=== PATIENT | female | born 1980 | race Caucasian/White ===

== ENCOUNTER 2019-01-22 14:25 | Inpatient (IN) | payer OTHER ==
--- NOTE | 2019-01-22 14:59 | ER Document Report ---
ED Medical Screen (RME) - General Chief Complaint: Back Pain Stated Complaint: STOMACH PAIN Time Seen by Provider: 01/22/19 14:41 Notes: Patient is a 38-year-old female who presents to the emergency department with a chief complaint of abdominal pain and back pain. Patient states that her symptoms started 2 days ago. She was seen by urgent care this morning and was referred to the emergency department. Patient admits to some vomiting. Her pain started in her mid upper abdomen. She states that she had a fullness and she thought that she may be had gas. Patient vomited a few times. Denies any diarrhea. Her back pain started yesterday and describes her pain as a dull ache. Patient states that she is currently on control that is usually about 3 months long and her last menstrual cycle was about 3 months ago. Exam: Soft nontender abdomen. I have greeted and performed a rapid initial assessment of this patient. A comprehensive ED assessment and evaluation of the patient, analysis of test results and completion of medical decision making process will be conducted by an additional ED providers. - Related Data Allergies/Adverse Reactions: No Known Allergies Allergy (Verified 01/22/19 14:41) Past Medical History - Social History Frequency of alcohol use: None Drug Abuse: None Physical Exam - Vital signs Vitals: Temp Pulse Resp BP Pulse Ox 98.5 F 98 16 135/71 H 96 01/22/19 14:29 01/22/19 14:29 01/22/19 14:29 01/22/19 14:29 01/22/19 14:29 Course - Vital Signs Vital signs: Temp Pulse Resp BP Pulse Ox 98.5 F 98 16 135/71 H 96 01/22/19 14:29 01/22/19 14:29 01/22/19 14:29 01/22/19 14:29 01/22/19 14:29
[2019-01-22] MEDS ORDERED: NAPROXEN 250 MG TABLET PO ONE (15:21)
--- NOTE | 2019-01-22 15:25 | ER Document Report ---
ED General - General Chief Complaint: Back Pain Stated Complaint: STOMACH PAIN Time Seen by Provider: 01/22/19 14:41 Primary Care Provider: TAYLER SHARP MD [Primary Care Provider] - Follow up as needed - [facility] Notes: Patient is a 38-year-old female that presents to the emergency department for chief complaint of abdominal pain and back pain. Patient states 3 days ago she had epigastric abdominal pain nausea and vomiting. She states her pain has progressively improved and is now resolved. She also states the nausea is resolved. She has not vomited since yesterday. Patient states that yesterday she began having bilateral thoracic and low back pain. Her pain is worse when she sits still and better when she is up moving. She denies injury or trauma. She denies any dysuria or urinary frequency. Patient not having any fever, chills, chest pain or difficulty breathing. She states she took Gas-X yesterday without improvement of symptoms. She denies history of chronic back pain in the past. Past Medical History: Negative Past Surgical History: Reviewed in chart Social History: Denies drugs alcohol and tobacco Family History: Reviewed and noncontributory for presenting illness Allergies: Reviewed, see documented allergy list. REVIEW OF SYSTEMS: CONSTITUTIONAL : No fever No chills No diaphoresis No recent illness EENT: No vision changes No congestion No sore throat CARDIOVASCULAR: No chest pain No palpitations RESPIRATORY: No shortness of breath No cough No difficulty breathing GASTROINTESTINAL: abdominal pain nausea vomiting No diarrhea GENITOURINARY: No dysuria No hematuria No difficulty urinating MUSCULOSKELETAL: back pain No leg pain No arm pain SKIN: No rashes No lesions LYMPHATIC: No swollen, enlarged glands. NEUROLOGICAL: No lightheadedness No headache No weakness No paresthesias PSYCHIATRIC: No anxiety No depression PHYSICAL EXAMINATION: Vital signs reviewed, nursing noted reviewed. GENERAL: Well-appearing, well-nourished and in no acute distress. HEAD: Atraumatic, normocephalic. EYES: Eyes appear normal, extraocular movements intact, sclera anicteric, conjunctiva are normal. ENT: nares patent, oropharynx clear without exudates. Moist mucous membranes. NECK: Normal range of motion, supple without lymphadenopathy LUNGS: Breath sounds clear to auscultation bilaterally and equal. No wheezes rales or rhonchi. HEART: Regular rate and rhythm without murmurs ABDOMEN: Soft, nontender, normoactive bowel sounds. No rebound, guarding, or rigidity. No masses appreciated. Back: Bilateral lower thoracic and diffuse lumbar muscle paraspinal tenderness. No midline spinal tenderness. Normal range of motion. EXTREMITIES: Nontender, good range of motion, no pitting or edema. NEUROLOGICAL: No focal neurological deficits. Moves all extremities spontaneously Motor and sensory grossly intact on exam. PSYCH: Normal mood, normal affect. SKIN: Warm, Dry, normal turgor, no rashes or lesions noted on exposed skin - Related Data Allergies/Adverse Reactions: No Known Allergies Allergy (Verified 01/22/19 14:41) Past Medical History - Social History Smoking Status: Unknown if Ever Smoked Frequency of alcohol use: None Drug Abuse: None Family History: Reviewed & Not Pertinent Patient has suicidal ideation: No Patient has homicidal ideation: No Past Surgical History: Reports: Hx Section - x4 Physical Exam - Vital signs Vitals: Temp Pulse Resp BP Pulse Ox 98.5 F 98 16 135/71 H 96 01/22/19 14:29 01/22/19 14:29 01/22/19 14:29 01/22/19 14:29 01/22/19 14:29 Course - Re-evaluation Re-evalutation: 01/22/19 15:23 Vitals reviewed. Nursing notes reviewed. Patient is well-appearing and in no acute distress. She has tenderness to palpation of her bilateral paraspinal muscles in her low back and lower thoracic region. Patient has had multiple episodes of emesis over the last few days and may have muscle strain from vomiting. She has no midline spinal tenderness to suggest spinal fracture necessitating imaging. Patient also has no symptoms of cauda equina, epidural abscess or transverse myelitis. She was given naproxen for her back pain. Patient's epigastric abdominal pain has resolved and she reports no longer feeling nauseated. Lab work was obtained in triage and will be followed. 01/22/19 16:45 Patient's lab work shows elevated bilirubin and lipase consistent with gallstone pancreatitis. Her ultrasound shows ductal dilation as well as cholelithiasis. Patient has no signs of acute cholecystitis. After she returned back from [facility] she states her abdominal pain is worse from the probe pushing in her right upper quadrant. She does now have a positive Salcido sign. Patient will be given IV fluids, Zofran and morphine for further symptom medic management. I did discuss her care with general surgery who will see her on consultation. Her care was also discussed with Dr. Lopes who feel she needs ERCP which is a service he cannot provide. 01/22/19 17:50 Patient was evaluated in the emergency room by Dr. Conde who agrees to admit her for further management. He was able to discuss her care with Dr. Ruiz who will perform ERCP. Patient in agreement with plan of care Laboratory 01/22/19 01/22/19 01/22/19 15:01 15:01 15:01 WBC 8.4 RBC 5.12 Hgb 15.3 Hct 45.7 MCV 89 MCH 29.9 MCHC 33.5 RDW 13.2 Plt Count 297 Lymph % (Auto) 23.3 [place] % (Auto) 7.2 Eos % (Auto) 1.6 Baso % (Auto) 0.6 Absolute Neuts (auto) 5.6 Absolute Lymphs (auto) 1.9 Absolute Monos (auto) 0.6 Absolute Eos (auto) 0.1 Absolute Basos (auto) 0.0 Seg Neutrophils % 67.3 Sodium 138.2 Potassium 4.0 Chloride 103 Carbon Dioxide 24 Anion Gap 11 BUN 6 L Creatinine 0.83 Est GFR ( Amer) > 60 Est GFR (MDRD) Non-Af > 60 Glucose 99 Calcium 10.2 Total Bilirubin 6.1 H Direct Bilirubin 4.1 H Neonat Total Bilirubin Not Reportable Neonat Direct Bilirubin Not Reportable Neonat Indirect Bili Not Reportable AST 415 H ALT 521 Alkaline Phosphatase 135 H Total Protein 8.6 H Albumin 4.7 Lipase 72065.9 H Serum HCG, Qual NEGATIVE Urine Color Urine Appearance Urine pH Ur Specific [place] Urine Protein Urine Glucose (UA) Urine Ketones Urine Blood Urine Nitrite Urine Bilirubin Urine Urobilinogen Ur Leukocyte Esterase Urine WBC (Auto) Urine RBC (Auto) Urine Bacteria (Auto) Squamous Epi Cells Auto Urine Mucus (Auto) Urine Ascorbic Acid 01/22/19 15:01 WBC RBC Hgb Hct MCV MCH MCHC RDW Plt Count Lymph % (Auto) [place] % (Auto) Eos % (Auto) Baso % (Auto) Absolute Neuts (auto) Absolute Lymphs (auto) Absolute Monos (auto) Absolute Eos (auto) Absolute Basos (auto) Seg Neutrophils % Sodium Potassium Chloride Carbon Dioxide Anion Gap BUN Creatinine Est GFR ( Amer) Est GFR (MDRD) Non-Af Glucose Calcium Total Bilirubin Direct Bilirubin Neonat Total Bilirubin Neonat Direct Bilirubin Neonat Indirect Bili AST ALT Alkaline Phosphatase Total Protein Albumin Lipase Serum HCG, Qual Urine Color YELLOW Urine Appearance CLEAR Urine pH 5.0 Ur Specific [place] 1.010 Urine Protein NEGATIVE Urine Glucose (UA) NEGATIVE Urine Ketones 20 H Urine Blood MODERATE H Urine Nitrite NEGATIVE Urine Bilirubin SMALL H Urine Urobilinogen 4.0 H Ur Leukocyte Esterase NEGATIVE Urine WBC (Auto) 4 Urine RBC (Auto) 3 Urine Bacteria (Auto) 3+ Squamous Epi Cells Auto 1 Urine Mucus (Auto) RARE Urine Ascorbic Acid NEGATIVE Abdomen Ultrasound 01/22/19 15:38 IMPRESSION: Cholelithiasis. No acute inflammatory changes identified. Mild fatty liver. - Vital Signs Vital signs: Temp Pulse Resp BP Pulse Ox 97.9 F 89 16 133/82 H 98 01/22/19 16:53 01/22/19 16:53 01/22/19 16:53 01/22/19 16:53 01/22/19 16:53 - Laboratory Result Diagrams: 01/22/19 15:01 01/22/19 15:01 Laboratory results interpreted by me: 01/22/19 01/22/19 15:01 15:01 BUN 6 L Total Bilirubin 6.1 H Direct Bilirubin 4.1 H AST 415 H Alkaline Phosphatase 135 H Total Protein 8.6 H Lipase 84547.9 H Urine Ketones 20 H Urine Blood MODERATE H Urine Bilirubin SMALL H Urine Urobilinogen 4.0 H Discharge - Discharge Clinical Impression: Gallstone pancreatitis, Total bilirubin, elevated, Elevated LFTs Back pain Qualifiers: Back pain location: low back pain Chronicity: acute Back pain laterality: bi lateral Sciatica presence: without sciatica Qualified Code(s): M54.5 - Low back pain Nausea and vomiting Qualifiers: Vomiting type: unspecified Vomiting Intractability: non-intractable Qualified Code(s): R11.2 - Nausea with vomiting, unspecified Condition: Stable Disposition: ADMITTED INPATIENT Admitting Provider: Surgicalist Unit Admitted: Surgical Floor Referrals: TAYLER SHARP MD [Primary Care Provider] - Follow up as needed
[2019-01-22 15:27] LABS: ABSOLUTE EOSINOPHILS # (AUTO) 0.1 10^3/uL (0.0-0.6); ABSOLUTE LYMPHOCYTES (AUTO) 1.9 10^3/uL (0.5-4.7); ABSOLUTE MONOCYTES (AUTO) 0.6 10^3/uL (0.1-1.4); ABSOLUTE NEUT (AUTO) 5.6 10^3/uL (1.7-8.2); APPEARANCE,URINE CLEAR; BASOPHILS % (AUTO) 0.6 % (0-2); BILIRUBIN,URINE SMALL (NEGATIVE); EOSINOPHILS % (AUTO) 1.6 % (0-6); GLUCOSE, URINE NEGATIVE (NEGATIVE); HEMATOCRIT 45.7 % (36.0-47.0); HEMOGLOBIN 15.3 g/dL (12.0-15.5); KETONES,URINE 20 mg/dL (NEGATIVE); LEUKOCYTE ESTERASE,URINE NEGATIVE (NEGATIVE); LYMPHOCYTES % (AUTO) 23.3 % (13-45); MEAN CORPUSCULAR HEMOGLOBIN 29.9 pg (27.0-33.4); MEAN CORPUSCULAR HGB CONC 33.5 g/dL (32.0-36.0); MEAN CORPUSCULAR VOLUME 89 fl (80-97); MONOCYTES % (AUTO) 7.2 % (3-13); NITRITE,URINE NEGATIVE (NEGATIVE); PLATELET COUNT 297 10^3/uL (150-450); PROTEIN,URINE NEGATIVE (NEGATIVE); RED BLOOD COUNT 5.12 10^6/uL (3.72-5.28); RED CELL DISTRIBUTION WIDTH 13.2 % (11.5-14.0); SEGMENTED NEUTROPHILS % (AUTO) 67.3 % (42-78); TOTAL CELLS COUNTED % (AUTO) 100 %; WHITE BLOOD COUNT 8.4 10^3/uL (4.0-10.5)
[2019-01-22 15:28] LABS: COLOR,URINE YELLOW
[2019-01-22 15:33] LABS: ALBUMIN 4.7 g/dL (3.5-5.0); ALKALINE PHOSPHATASE 135 U/L (38-126); ANION GAP 11 (5-19); ASPARTATE AMINO TRANSFERASE 415 U/L (14-36); BILIRUBIN,DIRECT 4.1 mg/dL (0.0-0.4); BILIRUBIN,TOTAL 6.1 mg/dL (0.2-1.3); BLOOD UREA NITROGEN 6 mg/dL (7-20); CALCIUM 10.2 mg/dL (8.4-10.2); CARBON DIOXIDE 24 mmol/L (22-30); CHLORIDE 103 mmol/L (98-107); GLUCOSE 99 mg/dL (75-110); TOTAL PROTEIN 8.6 g/dL (6.3-8.2)
[2019-01-22] MEDS ORDERED: ONDANSETRON HCL INJ/PF 4 MG/2 ML SDV IV ONE (16:45)
[2019-01-22] MEDS ORDERED: NORMAL SALINE 1000 ML 1,000 ML IV ONE (16:45)
[2019-01-22] MEDS ORDERED: MORPHINE SULFATE 10 MG/ML INJ IV ONE ×2 (16:45→17:42)
--- NOTE | 2019-01-22 17:03 | RADIOLOGY REPORT (SQ) ---
EXAM DESCRIPTION: U/S ABDOMEN LIMITED W/O DOP COMPLETED DATE/TIME: 01/22/2019 4:51 pm REASON FOR STUDY: elevated bilirubin, abdominal pain COMPARISON: None. TECHNIQUE: Dynamic and static grayscale images acquired of the abdomen and recorded on PACS. Additio nal selected color Doppler and spectral images recorded. LIMITATIONS: Bowel gas. FINDINGS: PANCREAS: Partially obscured due to bowel gas. LIVER: No masses. Echotexture mildly increased consistent with fatty infiltration. LIVER VASCULATURE: Normal directional flow of the main portal vein and hepatic veins. GALLBLADDER: Multiple tiny stones. Normal wall thickness. No pericholecystic fluid. ULTRASOUND-DETECTED PRESCOTT'S SIGN: Negative. INTRAHEPATIC DUCTS AND COMMON DUCT: CBD and intrahepatic ducts normal caliber. No filling defects. INFERIOR VENA CAVA: Normal flow. AORTA: No aneurysm identified. RIGHT KIDNEY: Normal size. Normal echogenicity. No solid or suspicious masses. No hydronephros is. No calcifications. PERITONEAL AND RIGHT PLEURAL SPACE: No ascites or effusions. OTHER: No other significant findings. IMPRESSION: Cholelithiasis. No acute inflammatory changes identified. Mild fatty liver. TECHNICAL DOCUMENTATION: JOB ID: [id number] 2010 [employer]- All Rights Reserved Reading location - IP/workstation name: [email or web address]
[2019-01-22] MEDS ORDERED: HYDROMORPHONE HCL INJ/PF 2 MG/ML AMPULE ONE (19:18)
[2019-01-22] MEDS ORDERED: ONDANSETRON HCL INJ/PF 4 MG/2 ML SDV ONE (19:18)
[2019-01-22] MEDS: NORMAL SALINE 1000 ML 1,000 ML IV PRN (19:29)
[2019-01-22] MEDS ORDERED: DEXTROSE 50%-WATER 25 GM/50 ML DISP.SYRIN IV PRN ×3 (19:55→20:03)
[2019-01-22] MEDS ORDERED: DEXTROSE 40% GEL 15 GM TUBE PO PRN ×3 (19:55→20:03)
[2019-01-22] MEDS ORDERED: GLUCAGON,HUMAN RECOMB 1 MG INJ SUBCUT PRN (19:55)
--- NOTE | 2019-01-22 20:03 | PDOC H&P ---
History of Present Illness Admission Date/PCP: 01/22/19 18:03 TAYLER SHARP MD Patient complains of: Nausea and vomiting with abdominal pains History of Present Illness: PEÑA SILVA is a 38 year old female who complained of nausea and vomiting with epigastric pains after eating a fatty meal about 2 days ago. Came to ED today because of persistent nausea and epigastric pains radiating to the back. She denies any chills or fever diarrhea nor constipation. Her bilirubin, liver enzymes and lipase are elevated are elevated. She had an ultrasound of the gallbladder which showed gallstones with no cholecystitis and slightly dilated common bile duct. Past Medical History Medical History: None Past Surgical History Past Surgical History: Reports: Section - x4 Social History Smoking Status: Never Smoker Electronic Cigarette use?: No Frequency of Alcohol Use: Rare Hx Recreational Drug Use: Yes Drugs: None Hx Prescription Drug Abuse: No Family History Family History: Reviewed & Not Pertinent Parental Family History Reviewed: Yes - Father at age 64 due to lung cancer and mother is alive with autoimmun Children Family History Reviewed: No Sibling(s) Family History Reviewed.: No Medication/Allergy Allergies/Adverse Reactions: No Known Allergies Allergy (Verified 01/22/19 14:41) Review of Systems Constitutional: PRESENT: as per HPI Cardiovascular: PRESENT: other - No chest pains nor cough Gastrointestinal: PRESENT: abdominal pain, nausea, vomiting Physical Exam Vital Signs: Temp Pulse Resp BP Pulse Ox 97.9 F 89 16 133/82 H 98 01/22/19 16:53 01/22/19 16:53 01/22/19 16:53 01/22/19 16:53 01/22/19 16:53 Intake & Output 01/21/19 01/22/19 01/23/19 06:59 06:59 06:59 Intake Total 1000 Balance 1000 Weight 99.1 kg General appearance: PRESENT: mild distress, obese Head exam: PRESENT: atraumatic Mouth exam: PRESENT: dry mucosa Neck exam: PRESENT: full ROM Respiratory exam: PRESENT: clear to auscultation zan Cardiovascular exam: PRESENT: RRR Pulses: PRESENT: normal radial pulses Vascular exam: PRESENT: normal capillary refill GI/Abdominal exam: PRESENT: soft, tenderness - Epigastric area Rectal exam: PRESENT: deferred Extremities exam: PRESENT: full ROM Musculoskeletal exam: PRESENT: ambulatory Psychiatric exam: PRESENT: appropriate affect Skin exam: PRESENT: normal color, warm Results Laboratory Results: 01/22/19 15:01 01/22/19 15:01 01/22/19 01/22/19 01/22/19 15:01 15:01 15:01 WBC 8.4 RBC 5.12 Hgb 15.3 Hct 45.7 MCV 89 MCH 29.9 MCHC 33.5 RDW 13.2 Plt Count 297 Seg Neutrophils % 67.3 Sodium 138.2 Potassium 4.0 Chloride 103 Carbon Dioxide 24 Anion Gap 11 BUN 6 L Creatinine 0.83 Est GFR ( Amer) > 60 Glucose 99 Calcium 10.2 Total Bilirubin 6.1 H AST 415 H Alkaline Phosphatase 135 H Total Protein 8.6 H Albumin 4.7 Lipase 08980.9 H Serum HCG, Qual NEGATIVE Urine Color Urine Appearance Urine pH Ur Specific [place] Urine Protein Urine Glucose (UA) Urine Ketones Urine Blood Urine Nitrite Ur Leukocyte Esterase Urine WBC (Auto) Urine RBC (Auto) 01/22/19 15:01 WBC RBC Hgb Hct MCV MCH MCHC RDW Plt Count Seg Neutrophils % Sodium Potassium Chloride Carbon Dioxide Anion Gap BUN Creatinine Est GFR ( Amer) Glucose Calcium Total Bilirubin AST Alkaline Phosphatase Total Protein Albumin Lipase Serum HCG, Qual Urine Color YELLOW Urine Appearance CLEAR Urine pH 5.0 Ur Specific [place] 1.010 Urine Protein NEGATIVE Urine Glucose (UA) NEGATIVE Urine Ketones 20 H Urine Blood MODERATE H Urine Nitrite NEGATIVE Ur Leukocyte Esterase NEGATIVE Urine WBC (Auto) 4 Urine RBC (Auto) 3 Impressions: Abdomen Ultrasound 01/22/19 15:38 IMPRESSION: Cholelithiasis. No acute inflammatory changes identified. Mild fatty liver. Assessment & Plan - Diagnosis (1) Back pain Qualifiers: Back pain location: low back pain Chronicity: acute Back pain laterality: bilateral Sciatica presence: without sciatica Qualified Code(s): M54.5 - Low back pain Is this a current diagnosis for this admission?: Yes (2) Elevated LFTs Is this a current diagnosis for this admission?: Yes (3) Gallstone pancreatitis Is this a current diagnosis for this admission?: Yes (4) Nausea and vomiting Qualifiers: Vomiting type: unspecified Vomiting Intractability: non-intractable Qualified Code(s): R11.2 - Nausea with vomiting, unspecified Is this a current diagnosis for this admission?: Yes (5) Total bilirubin, elevated Is this a current diagnosis for this admission?: Yes - Time Time Spent: 30 to 50 Minutes - Inpatient Certification Medical Necessity: Need For IV Fluids, Need for Pain Control, Need for IV An tibiotics, Need for Surgery - Plan Summary Plan Summary: Discussed with respiratory medicine physician Dr. Ruiz, he is willing to do the ERCP in 48hours hopefully when her enzymes are trending down. Meantime will keep the patient well-hydrated, will anti- Nausea medications, pain medication and IV antibiotics We will also need cholecystectomy after ERCP
[2019-01-22] MEDS: ENOXAPARIN SODIUM INJ 40 MG/0.4 ML DISP.SYRIN SUBCUT SCH (21:35)
[2019-01-22] MEDS: HYDROMORPHONE HCL INJ/PF 2 MG/ML AMPULE IV PRN (22:34)
[2019-01-23] MEDS: HYDROMORPHONE HCL INJ/PF 2 MG/ML AMPULE IV PRN ×8 (01:33→22:36)
[2019-01-23] MEDS: ONDANSETRON HCL INJ/PF 4 MG/2 ML SDV IV PRN ×3 (01:34→13:51)
[2019-01-23] MEDS: DEXTROSE 5%-LACTATED RINGERS 1,000 ML IV PRN ×4 (01:37→20:26)
[2019-01-23] MEDS ORDERED: HYDROMORPHONE HCL INJ/PF 2 MG/ML AMPULE IV PRN (02:17)
[2019-01-23] MEDS ORDERED: HYDROMORPHONE HCL INJ/PF 2 MG/ML AMPULE IV ONE (02:30)
[2019-01-23 07:45] LABS: ABSOLUTE MONOCYTES (AUTO) 0.5 10^3/uL (0.1-1.4); ABSOLUTE NEUT (AUTO) 7.2 10^3/uL (1.7-8.2); BASOPHILS % (AUTO) 0.2 % (0-2); EOSINOPHILS % (AUTO) 0.5 % (0-6); HEMATOCRIT 40.9 % (36.0-47.0); LYMPHOCYTES % (AUTO) 11.2 % (13-45); MEAN CORPUSCULAR HEMOGLOBIN 30.4 pg (27.0-33.4); MEAN CORPUSCULAR HGB CONC 34.3 g/dL (32.0-36.0); MEAN CORPUSCULAR VOLUME 89 fl (80-97); MONOCYTES % (AUTO) 6.2 % (3-13); PLATELET COUNT 224 10^3/uL (150-450); RED BLOOD COUNT 4.61 10^6/uL (3.72-5.28); RED CELL DISTRIBUTION WIDTH 13.3 % (11.5-14.0); SEGMENTED NEUTROPHILS % (AUTO) 81.9 % (42-78); TOTAL CELLS COUNTED % (AUTO) 100 %; WHITE BLOOD COUNT 8.8 10^3/uL (4.0-10.5)
[2019-01-23 08:00] LABS: ALBUMIN 3.4 g/dL (3.5-5.0); ALKALINE PHOSPHATASE 96 U/L (38-126); ANION GAP 8 (5-19); ASPARTATE AMINO TRANSFERASE 281 U/L (14-36); BILIRUBIN,DIRECT 3.6 mg/dL (0.0-0.4); BILIRUBIN,TOTAL 5.2 mg/dL (0.2-1.3); BLOOD UREA NITROGEN 4 mg/dL (7-20); CARBON DIOXIDE 24 mmol/L (22-30); CHLORIDE 105 mmol/L (98-107); GLUCOSE 137 mg/dL (75-110); POTASSIUM 3.9 mmol/L (3.6-5.0); TOTAL PROTEIN 6.5 g/dL (6.3-8.2)
[2019-01-23] MEDS ORDERED: INFLUENZA QUAD (6MOS+) 2019-20 VAC 0.5 ML SYR IM ONE (08:00)
[2019-01-23] MEDS: CEFAZOLIN SODIUM 2 GM in DEXTROSE 5%-WATER 100 ML IV SCH ×2 (10:39→18:03)
[2019-01-23] MEDS: PROMETHAZINE HCL INJ 25 MG/1 ML VIAL IV PRN (10:39)
[2019-01-23] MEDS: ENOXAPARIN SODIUM INJ 40 MG/0.4 ML DISP.SYRIN SUBCUT SCH (10:51)
--- NOTE | 2019-01-23 19:45 | PDOC PROGRESS REPORT ---
Subjective Progress Note for:: 01/23/19 Subjective:: abdominal pains with nausea Reason For Visit: GALLSTONE PANCREATITIS CHOLELITHIASIS Physical Exam Vital Signs: Temp Pulse Resp BP Pulse Ox 98.1 F 99 17 118/73 96 01/23/19 16:00 01/23/19 16:00 01/23/19 16:00 01/23/19 16:00 01/23/19 16:00 Intake & Output 01/22/19 01/23/19 01/24/19 06:59 06:59 06:59 Intake Total 2100 2100 Balance 2100 2100 Weight 99.5 kg Exam: The abdomen is soft with mild tenderness at the epigastric area. She remains afebrile. Results Laboratory Results: 01/23/19 06:37 01/23/19 06:37 01/23/19 01/23/19 06:37 06:37 WBC 8.8 RBC 4.61 Hgb 14.0 Hct 40.9 MCV 89 MCH 30.4 MCHC 34.3 RDW 13.3 Plt Count 224 Seg Neutrophils % 81.9 H Sodium 136.7 L Potassium 3.9 Chloride 105 Carbon Dioxide 24 Anion Gap 8 BUN 4 L Creatinine 0.54 Est GFR ( Amer) > 60 Glucose 137 H Calcium 9.0 Total Bilirubin 5.2 H AST 281 H Alkaline Phosphatase 96 Total Protein 6.5 Albumin 3.4 L Lipase 88718.0 H Impressions: Abdomen Ultrasound 01/22/19 15:38 IMPRESSION: Cholelithiasis. No acute inflammatory changes identified. Mild fatty liver. Assessment & Plan - Diagnosis (1) Back pain Qualifiers: Back pain location: low back pain Chronicity: acute Back pain laterality: bilateral Sciatica presence: without sciatica Qualified Code(s): M54.5 - Low back pain Is this a current diagnosis for this admission?: Yes (2) Elevated LFTs Is this a current diagnosis for this admission?: Yes (3) Gallstone pancreatitis Is this a current diagnosis for this admission?: Yes (4) Nausea and vomiting Qualifiers: Vomiting type: unspecified Vomiting Intractability: non-intractable Qualified Code(s): R11.2 - Nausea with vomiting, unspecified Is this a current diagnosis for this admission?: Yes (5) Total bilirubin, elevated Is this a current diagnosis for this admission?: Yes - Time Time Spent with patient: 15-24 minutes - Inpatient Certification Medical Necessity: Need For IV Fluids, Need for Pain Control, Need for IV Antibiotics, Need for Surgery - Plan Summary Plan Summary: All her LFTs and lipase as well as bilirubin levels are trending down. Her white count remains normal. She is for possible ERCP tomorrow followed by laparoscopic cholecystectomy.
[2019-01-24] MEDS: HYDROMORPHONE HCL INJ/PF 2 MG/ML AMPULE IV PRN ×7 (00:46→15:57)
[2019-01-24] MEDS: ONDANSETRON HCL INJ/PF 4 MG/2 ML SDV IV PRN ×2 (02:46→11:06)
[2019-01-24] MEDS: CEFAZOLIN SODIUM 2 GM in DEXTROSE 5%-WATER 100 ML IV SCH ×2 (02:46→11:07)
[2019-01-24 04:16] LABS: ABSOLUTE EOSINOPHILS # (AUTO) 0.1 10^3/uL (0.0-0.6); ABSOLUTE LYMPHOCYTES (AUTO) 1.7 10^3/uL (0.5-4.7); ABSOLUTE MONOCYTES (AUTO) 0.6 10^3/uL (0.1-1.4); ABSOLUTE NEUT (AUTO) 10.1 10^3/uL (1.7-8.2); BASOPHILS % (AUTO) 0.2 % (0-2); EOSINOPHILS % (AUTO) 0.7 % (0-6); HEMATOCRIT 44.6 % (36.0-47.0); HEMOGLOBIN 15.1 g/dL (12.0-15.5); LYMPHOCYTES % (AUTO) 13.7 % (13-45); MEAN CORPUSCULAR HGB CONC 33.8 g/dL (32.0-36.0); MEAN CORPUSCULAR VOLUME 89 fl (80-97); MONOCYTES % (AUTO) 4.9 % (3-13); PLATELET COUNT 249 10^3/uL (150-450); RED BLOOD COUNT 5.02 10^6/uL (3.72-5.28); RED CELL DISTRIBUTION WIDTH 13.8 % (11.5-14.0); SEGMENTED NEUTROPHILS % (AUTO) 80.5 % (42-78); TOTAL CELLS COUNTED % (AUTO) 100 %; WHITE BLOOD COUNT 12.5 10^3/uL (4.0-10.5)
[2019-01-24 04:33] LABS: ALBUMIN 3.2 g/dL (3.5-5.0); ALKALINE PHOSPHATASE 106 U/L (38-126); ANION GAP 7 (5-19); ASPARTATE AMINO TRANSFERASE 257 U/L (14-36); BILIRUBIN,DIRECT 4.5 mg/dL (0.0-0.4); BLOOD UREA NITROGEN 3 mg/dL (7-20); CALCIUM 8.4 mg/dL (8.4-10.2); CARBON DIOXIDE 33 mmol/L (22-30); CHLORIDE 99 mmol/L (98-107); GLUCOSE 101 mg/dL (75-110); POTASSIUM 4.1 mmol/L (3.6-5.0); TOTAL PROTEIN 6.2 g/dL (6.3-8.2)
[2019-01-24] MEDS: PROMETHAZINE HCL INJ 25 MG/1 ML VIAL IV PRN ×3 (08:04→23:18)
[2019-01-24] MEDS: ENOXAPARIN SODIUM INJ 40 MG/0.4 ML DISP.SYRIN SUBCUT SCH (10:12)
--- NOTE | 2019-01-24 10:35 | PDOC PROGRESS REPORT ---
Subjective Subjective:: Hospital day 3 for patient with symptoms of cholelithiasis and presumed bleed cholelithiasis. Patient still having abdominal pain. Is taking narcotics [id number]. Reason For Visit: GALLSTONE PANCREATITIS CHOLELITHIASIS Physical Exam Vital Signs: Temp Pulse Resp BP Pulse Ox 99.7 F 122 H 18 114/78 93 01/24/19 08:00 01/24/19 08:00 01/24/19 08:00 01/24/19 08:00 01/24/19 08:00 Intake & Output 01/23/19 01/24/19 01/25/19 06:59 06:59 06:59 Intake Total 2100 3300 Output Total 800 Balance 2100 2500 Weight 99.5 kg 99.8 kg General appearance: PRESENT: no acute distress Results Laboratory Results: 01/24/19 03:53 01/24/19 03:53 01/24/19 01/24/19 03:53 03:53 WBC 12.5 H RBC 5.02 Hgb 15.1 Hct 44.6 MCV 89 MCH 30.0 MCHC 33.8 RDW 13.8 Plt Count 249 Seg Neutrophils % 80.5 H Sodium 138.6 Potassium 4.1 Chloride 99 Carbon Dioxide 33 H Anion Gap 7 BUN 3 L Creatinine 0.73 Est GFR ( Amer) > 60 Glucose 101 Calcium 8.4 Total Bilirubin 6.0 H AST 257 H Alkaline Phosphatase 106 Total Protein 6.2 L Albumin 3.2 L Lipase 86937.2 H Impressions: Abdomen Ultrasound 01/22/19 15:38 IMPRESSION: Cholelithiasis. No acute inflammatory changes identified. Mild fatty liver. Assessment & Plan - Diagnosis (1) Gallstone pancreatitis Is this a current diagnosis for this admission?: Yes Plan: Impression: Persisting abdominal pain, and elevated LFTs consistent with gallstone pancreatitis, and [place] cholelithiasis. Recommendations: 1. We have set patient up for laparoscopic cholecystectomy preceded by ERCP, sphincterotomy and stone extraction later today. This was discussed at length with the patient, and drawings provided on the board describing the pathoanatomy. 2. I spoke with Dr. Al Ruiz about the plan who agrees to proceed. (2) Elevated LFTs Is this a current diagnosis for this admission?: Yes (3) Total bilirubin, elevated Is this a current diagnosis for this admission?: Yes - Time Time Spent with patient: 15-24 minutes - Inpatient Certification Based on my medical assessment, after consideration of the patient's comorbidities, presenting symptoms, or acuity I expect that the services needed warrant INPATIENT care.: Yes I certify that my determination is in accordance with my understanding of Medicare's requirements for reasonable and necessary INPATIENT services [42 CFR 412.3e].: Yes Medical Necessity: Need For IV Fluids, Need for IV Antibiotics, Need for Surgery
[2019-01-24] MEDS: NORMAL SALINE 1000 ML 1,000 ML IV PRN (15:58)
[2019-01-24] MEDS ORDERED: MIDAZOLAM 2 MG/2 ML INJ ONE (17:21)
[2019-01-24] MEDS ORDERED: FENTANYL CITRATE INJ/PF 100 MCG/2 ML AMPUL ONE (17:21)
[2019-01-24] MEDS ORDERED: FENTANYL CITRATE INJ/PF 250 MCG/5 ML AMPULE ONE (17:21)
[2019-01-24] MEDS ORDERED: PROPOFOL INJ 200 MG/20 ML VIAL IV ONE (17:21)
[2019-01-24] MEDS ORDERED: MORPHINE SULFATE 10 MG/ML INJ ONE (17:21)
[2019-01-24] MEDS ORDERED: BUPIVACAINE HCL 0.25 % INJ/PF (2.5 MG/1 ML) 30 ML VIAL ONE (17:56)
--- NOTE | 2019-01-24 18:50 | PDOC CONSULTATION ---
Consultation Consult Date: 01/23/19 Provider Consulted: CLAUDETTE MICHAEL History of Present Illness Admission Date/PCP: 01/22/19 18:03 TAYLER SHARP MD History of Present Illness: PEÑA SILVA is a 38 year old female Patient was admitted on 02/22/2019 with abdominal pain, nausea, and vomiting. She started having pain about 5 days ago which lasted for many hours and improved over the next day and a half. The pain came back 2 days ago and has been constant since radiating to the back. On admission she was jaundice and her ultrasound showed gallstones with no dilated ducts when she was. Her initial lipase was over 40,000 with bilirubin of 6.1. By 01/23/2019 her lipase has come down from 48,000 to 22,000. Past Surgical History Past Surgical History: Reports: Section - x4 Social History Smoking Status: Never Smoker Electronic Cigarette use?: No Frequency of Alcohol Use: Rare Hx Recreational Drug Use: Yes Drugs: None Hx Prescription Drug Abuse: No - Advance Directive Resuscitation Status: Full Code Family History Family History: Reviewed & Not Pertinent Parental Family History Reviewed: No Children Family History Reviewed: NA Sibling(s) Family History Reviewed.: NA Medication/Allergy Home Medications: g-Cseltxw-Pxm Estr/Ethin Estra [Amethia 0.15-0.03-0.01 mg Tab] 1 tab PO DAILY 01/22/19 Allergies/Adverse Reactions: No Known Allergies Allergy (Verified 01/22/19 14:41) Review of Systems All systems: reviewed and no additional remarkable complaints except as stated Physical Exam Vital Signs: Temp Pulse Resp BP Pulse Ox 100.8 F H 144 H 16 113/71 94 01/24/19 16:00 01/24/19 16:00 01/24/19 16:00 01/24/19 16:00 01/24/19 16:00 Intake & Output 01/23/19 01/24/19 01/25/19 06:59 06:59 06:59 Intake Total 2100 3300 100 Output Total 800 Balance 2100 2500 100 Weight 99.5 kg 99.8 kg Exam: General: Patient is alert and looks well. HEENT: There is no pallor or jaundice. PERRLA. Oropharynx normal Respiratory: No chest deformity. No respiratory distress. Chest wall palpitation was unremarkable. Breath sounds were normal Cardiovascular: Heart sounds 1 and 2 normal with no murmurs. Abdominal: Not distended. Soft with some epigastric tenderness.. Liver and spleen not palpable. No ascites demonstrated. Bowel sounds active. Rectal examination was deferred. Extremities: No edema Neurological: Alert and oriented x4. Grossly nonfocal. Normal speech Skin: No significant rash Psychological: Normal affect Results Laboratory Results: 01/24/19 03:53 01/24/19 03:53 01/24/19 01/24/19 03:53 03:53 WBC 12.5 H RBC 5.02 Hgb 15.1 Hct 44.6 MCV 89 MCH 30.0 MCHC 33.8 RDW 13.8 Plt Count 249 Seg Neutrophils % 80.5 H Sodium 138.6 Potassium 4.1 Chloride 99 Carbon Dioxide 33 H Anion Gap 7 BUN 3 L Creatinine 0.73 Est GFR ( Amer) > 60 Glucose 101 Calcium 8.4 Total Bilirubin 6.0 H AST 257 H Alkaline Phosphatase 106 Total Protein 6.2 L Albumin 3.2 L Lipase 23280.2 H Impressions: Abdomen Ultrasound 01/22/19 15:38 IMPRESSION: Cholelithiasis. No acute inflammatory changes identified. Mild fatty liver. Assessment & Plan - Diagnosis (1) Jaundice Is this a current diagnosis for this admission?: Yes Plan: She likely has gallstone pancreatitis with choledocholithiasis. The need for an ERCP was explained to the patient and her and they are in agreement. She will be undergoing cholecystectomy immediately after the ERCP. (2) Elevated LFTs Is this a current diagnosis for this admission?: Yes (3) Gallstone pancreatitis Is this a current diagnosis for this admission?: Yes
--- NOTE | 2019-01-24 18:51 | Operative Report ---
Operative Report DATE OF SURGERY: 01/24/19 Operative Report: Pre-op diagnosis: Gallstones and jaundice with pancreatitis Post-op diagnosis: Common bile duct sludge Surgery: ERCP with sphincterotomy and balloon sludge extraction Medications: As per anesthesia Tissue removed: Procedure: After informed consent obtained from patient, the throat was sprayed with Hurricane and conscious sedation was achieved. The ERCP endoscope was then inserted into the esophagus blindly and advanced into the stomach. The duodenum was entered and the ampulla was identified. Using the triple-lumen sphincterotomy catheter the common bile duct was freely cannulated. A cholangiogram was obtained which showed possible filling defect in the distal common bile duct. The common bile duct and intrahepatic ducts did not appear dilated. A good sized sphincterotomy was then performed using the endocut mode. The catheter was removed over the guidewire before a 9-12 mm balloon catheter was inserted. The balloon was inflated to 12 mm in the proximal common bile duct and pulled down the duct. Some sludge was extracted. The duct was swept one more time. A balloon occlusion cholangiogram was normal. The pancreatic duct was intentionally not cannulated. Patient tolerated procedure well. Findings Common bile duct: Small amount of sludge Intrahepatic ducts: Normal Pancreatic duct: Not cannulated Plan: Proceed with cholecystectomy and follow-up LFTs OPERATION: .
[2019-01-24] MEDS ORDERED: DIPHENHYDRAMINE HCL 50 MG/ML VIAL IV PRN (19:21)
[2019-01-24] MEDS ORDERED: PROMETHAZINE HCL INJ 25 MG/1 ML VIAL IV PRN ×2 (19:21)
[2019-01-24] MEDS ORDERED: FENTANYL CITRATE INJ/PF 100 MCG/2 ML AMPUL IV PRN ×3 (19:21)
[2019-01-24] MEDS ORDERED: MORPHINE SULFATE 10 MG/ML INJ IV PRN (19:21)
[2019-01-24] MEDS ORDERED: MEPERIDINE HCL/PF INJ 25 MG/1 ML DISP.SYRIN IV PRN (19:21)
[2019-01-24] MEDS ORDERED: SUGAMMADEX SODIUM 200 MG/2 ML SDV IV ONE (19:51)
--- NOTE | 2019-01-24 20:27 | Operative Report ---
Operative Report DATE OF SURGERY: 01/24/19 PREOPERATIVE DIAGNOSIS: 1. Acute cholecystitis with cholelithiasis. 2. Acute pancreatitis. 3. Choledocholithiasis POSTOPERATIVE DIAGNOSIS: Same with bile peritonitis OPERATION: 1. Left scopic cholecystectomy. 2. Drainage of hepatic space. 3. Washout of peritoneal cavity. SURGEON: RIAN POLO ANESTHESIA: GA TISSUE REMOVED OR ALTERED: 1 gallbladder with contents QUANTITATIVE BLOOD LOSS: 20 INTRAOPERATIVE FINDINGS: See below PROCEDURE: The patient was taken from the preop holding area to the main operating room where general anesthesia was induced. Patient underwent ERCP, sludge extraction from the common bile duct, and sphincterotomy by Dr. Al Ruiz. There were no significant stones removed however. The patient was then placed in the supine position with arms extended, and the abdomen exposed. A Goodrich catheter was inserted, and there was minimal dark bile-stained urine. Abdomen is prepped and draped in sterile fashion and instrumentation set up for laparoscopic cholecystectomy Surgical plan and surgical timeout were conducted. Markings were made on the skin for port placement x4. The skin was anesthetized with 1% plain lidocaine. A vertical incision was made over the umbilicus, Veress needle inserted the peritoneal cavity pneumoperitoneum was established. Veress needle was removed, 5 mm ports inserted and 5 mm flexible viewing scope was inserted. Under direct visualization 3 additional ports were placed one in the subxiphoid into the subcostal positions. Intraperitoneal evaluation revealed no evidence of injury to visceral or vascular structures. There was mild patient of the omentum. The findings were significant for moderate to large amount of bilious ascites, cloudy. Photos were taken. Bladder is moderately distended with a dark greenish discoloration. It was very edematous. Graspers were placed on the fundus and infundibulum and the gallbladder was lifted away from the liver. Adhesions were taken down between the gallbladder and the gastroduodenal area all under excellent visualization. Tissue planes nicely. The cystic artery and cystic duct were in usual location, however the cystic duct was moderately patulous as was the tapering of the infundibulum towards the neck of the gallbladder. We secured the cystic artery by clipping it twice proximally once distally and divided. Photos have been taken. Opened up the triangle of Calot widely. There was no question with the critical view. Photos were taken. The cystic duct was milked of possible stones clipped on the gallbladder side and then opened for delivery of sludge and multiple stones from the cystic duct. We then divided the cystic duct, and put an Endoloop on the opening in the gallbladder. Multiple stones were milked out of the cystic duct. We left the cystic duct open for now. The gallbladder was removed from the liver bed using hook cautery dissection under excellent visualization and control. A small posterior cystic artery branch was cauterized. The gallbladder was then placed in an Endobag and brought the patient to the supraumbilical port site after widening the fascia. It contained many stones and a thickened wall. It was sent to pathology for final analysis We returned to the peritoneal cavity checked for bleeding from the relevant anatomy and there was none. We secured the cystic duct with a single application of an Endoloop under excellent visualization control. We now irrigated the peritoneal cavity including the sub-hepatic spaces, and the pelvis with approximately 4 L of saline. A large Matthew drain was placed in the peritoneal cavity through the right 4 subcostal port site., With the free and Adjacent to the duct stump and artery respectively. Her graph At this point we felt the operation was complete. Sponge and needle counts are correct. All ports removed under visualization, pneumoperitoneum evacuated, wounds closed with 0 Vicryl at the fascial level above the umbilicus, and all incisions closed with Vicryl suture. Benzoin Steri-Strips applied. Patient tolerated the procedure well, extubated, taken recovery in stable condition Plan: 1. Continue IV antibiotics, Goodrich catheter drainage and n.p.o. status 2. Reexamine patient in the morning consider DC Goodrich and start liquids. 3. Leave drain in for 24 to 48 hours to ensure clearance of intraperitoneal bile.
[2019-01-24] MEDS ORDERED: RINGERS SOLUTION,LACTATED 1,000 ML IV PRN (20:29)
[2019-01-24] MEDS ORDERED: CEFAZOLIN 1 GM/D5W RTU 50 ML IV SCH (20:30)
[2019-01-24] MEDS ORDERED: MEPERIDINE HCL/PF INJ 25 MG/1 ML DISP.SYRIN ONE (20:32)
[2019-01-24] MEDS ORDERED: KETOROLAC TROMETHAMINE INJ/PF 30 MG/1 ML SDV IV PRN (23:01)
[2019-01-24] MEDS: KETOROLAC TROMETHAMINE INJ/PF 30 MG/1 ML SDV IV PRN (23:19)
[2019-01-25] MEDS: CEFAZOLIN SODIUM 1 GM in DEXTROSE 5%-WATER 50 ML IV SCH ×3 (02:17→18:29)
[2019-01-25] MEDS: KETOROLAC TROMETHAMINE INJ/PF 30 MG/1 ML SDV IV PRN ×5 (04:01→23:07)
[2019-01-25 07:24] LABS: ABSOLUTE LYMPHOCYTES (AUTO) 2.2 10^3/uL (0.5-4.7); ABSOLUTE MONOCYTES (AUTO) 0.9 10^3/uL (0.1-1.4); ABSOLUTE NEUT (AUTO) 14.1 10^3/uL (1.7-8.2); BASOPHILS % (AUTO) 0.2 % (0-2); EOSINOPHILS % (AUTO) 0.2 % (0-6); HEMATOCRIT 41.8 % (36.0-47.0); HEMOGLOBIN 14.1 g/dL (12.0-15.5); LYMPHOCYTES % (AUTO) 12.7 % (13-45); MEAN CORPUSCULAR HGB CONC 33.7 g/dL (32.0-36.0); MEAN CORPUSCULAR VOLUME 89 fl (80-97); PLATELET COUNT 226 10^3/uL (150-450); RED BLOOD COUNT 4.69 10^6/uL (3.72-5.28); RED CELL DISTRIBUTION WIDTH 13.5 % (11.5-14.0); SEGMENTED NEUTROPHILS % (AUTO) 81.9 % (42-78); TOTAL CELLS COUNTED % (AUTO) 100 %; WHITE BLOOD COUNT 17.3 10^3/uL (4.0-10.5)
[2019-01-25 07:38] LABS: ALBUMIN 2.7 g/dL (3.5-5.0); ALKALINE PHOSPHATASE 93 U/L (38-126); ASPARTATE AMINO TRANSFERASE 112 U/L (14-36); BILIRUBIN,DIRECT 2.4 mg/dL (0.0-0.4); BILIRUBIN,TOTAL 4.1 mg/dL (0.2-1.3); TOTAL PROTEIN 5.3 g/dL (6.3-8.2)
--- NOTE | 2019-01-25 08:11 | RADIOLOGY REPORT (SQ) ---
EXAM DESCRIPTION: ENDO CATH/BILIARY DUCT; NO CHG FLUORO COMPLETED DATE/TIME: 01/24/2019 6:56 pm REASON FOR STUDY: ERCP COMPARISON: None. FLUOROSCOPY TIME: 1.9 minutes. 7 images saved to PACS. TECHNIQUE: Intra-operative images acquired during surgical procedure to evaluate progress. NUMBER OF IMAGES: 7 images. LIMITATIONS: None. FINDINGS: Images acquired during ERCP. IMPRESSION: IMAGE(S) OBTAINED DURING PROCEDURE. COMMENT: Quality ID [id number]: Final reports for procedures using fluoroscopy that document radiation exp osure indices, or exposure time and number of fluorographic images (if radiation exposure indices are not available) Please consult full operative report of the attending physician for description of the procedure. TECHNICAL DOCUMENTATION: JOB ID: [id number] [employer]- All Rights Reserved Reading location - IP/workstation name: [email or web address]
--- NOTE | 2019-01-25 08:11 | RADIOLOGY REPORT (SQ) ---
EXAM DESCRIPTION: ENDO CATH/BILIARY DUCT; NO CHG FLUORO COMPLETED DATE/TIME: 01/24/2019 6:56 pm REASON FOR STUDY: ERCP COMPARISON: None. FLUOROSCOPY TIME: 1.9 minutes. 7 images saved to PACS. TECHNIQUE: Intra-operative images acquired during surgical procedure to evaluate progress. NUMBER OF IMAGES: 7 images. LIMITATIONS: None. FINDINGS: Images acquired during ERCP. IMPRESSION: IMAGE(S) OBTAINED DURING PROCEDURE. COMMENT: Quality ID [id number]: Final reports for procedures using fluoroscopy that document radiation exp osure indices, or exposure time and number of fluorographic images (if radiation exposure indices are not available) Please consult full operative report of the attending physician for description of the procedure. TECHNICAL DOCUMENTATION: JOB ID: [id number] [employer]- All Rights Reserved Reading location - IP/workstation name: [email or web address]
[2019-01-25] MEDS: ONDANSETRON HCL INJ/PF 4 MG/2 ML SDV IV PRN (08:21)
[2019-01-25] MEDS ORDERED: HYDROMORPHONE HCL INJ/PF 2 MG/ML AMPULE ONE (08:50)
[2019-01-25] MEDS: ENOXAPARIN SODIUM INJ 40 MG/0.4 ML DISP.SYRIN SUBCUT SCH (09:38)
--- NOTE | 2019-01-25 11:46 | PDOC PROGRESS REPORT ---
Subjective Progress Note for:: 01/25/19 Subjective:: c/o abdominal pains post ERCP and Lap Aminta. Her LFTs and lipase continue to trend down but WBC is elevated. Had acute cholecystitis noted intra-operatively Reason For Visit: GALLSTONE PANCREATITIS CHOLELITHIASIS Physical Exam Vital Signs: Temp Pulse Resp BP Pulse Ox 98.5 F 109 H 19 96/73 L 94 01/25/19 08:19 01/25/19 08:19 01/25/19 08:19 01/25/19 08:19 01/25/19 08:19 Intake & Output 01/24/19 01/25/19 01/26/19 06:59 06:59 06:59 Intake Total 3300 5250 Output Total 800 3550 Balance 2500 1700 Weight 99.8 kg 99.8 kg Exam: Abdomen is soft and nondistended. Incisions are clean and dry. Mild abdominal tenderness Results Laboratory Results: 01/25/19 07:07 01/24/19 03:53 01/25/19 01/25/19 07:07 07:07 WBC 17.3 H RBC 4.69 Hgb 14.1 Hct 41.8 MCV 89 MCH 30.0 MCHC 33.7 RDW 13.5 Plt Count 226 Seg Neutrophils % 81.9 H Total Bilirubin 4.1 H AST 112 H Alkaline Phosphatase 93 Total Protein 5.3 L Albumin 2.7 L Lipase 1446.9 H Impressions: Abdomen Ultrasound 01/22/19 15:38 IMPRESSION: Cholelithiasis. No acute inflammatory changes identified. Mild fatty liver. Catheter Placement 01/24/19 00:00 IMPRESSION: IMAGE(S) OBTAINED DURING PROCEDURE. Fluoroscopy 01/24/19 00:00 IMPRESSION: IMAGE(S) OBTAINED DURING PROCEDURE. Assessment & Plan - Diagnosis (1) Back pain Qualifiers: Back pain location: low back pain Chronicity: acute Back pain laterality: bilateral Sciatica presence: without sciatica Qualified Code(s): M54.5 - Low back pain Is this a current diagnosis for this admission?: Yes (2) Elevated LFTs Is this a current diagnosis for this admission?: Yes (3) Gallstone pancreatitis Is this a current diagnosis for this admission?: Yes (4) Nausea and vomiting Qualifiers: Vomiting type: unspecified Vomiting Intractability: non-intractable Qualified Code(s): R11.2 - Nausea with vomiting, unspecified Is this a current diagnosis for this admission?: Yes (5) Total bilirubin, elevated Is this a current diagnosis for this admission?: Yes - Time Time Spent with patient: 15-24 minutes - Inpatient Certification Medical Necessity: Need For IV Fluids, Need for IV Antibiotics - Plan Summary Plan Summary: Continue IV antibiotics and pain Meds Gradually start po diet Hopefully can be discharge in 24-48 hrs
[2019-01-25] MEDS: HYDROMORPHONE HCL INJ/PF 2 MG/ML AMPULE IV PRN ×3 (12:52→21:01)
[2019-01-25] MEDS: ACETAMINOPHEN 325 MG TABLET ONE ×2 (16:40)
[2019-01-25] MEDS ORDERED: ACETAMINOPHEN 325 MG TABLET PO ONE (17:30)
[2019-01-25] MEDS: NORMAL SALINE 1000 ML 1,000 ML IV PRN (18:30)
[2019-01-25] MEDS ORDERED: TEMAZEPAM 15 MG CAPSULE PO ONE (23:30)
[2019-01-25] MEDS: OXYCODONE-ACETAMINOPHEN 5-325 MG TABLET PO PRN (23:54)
[2019-01-26] MEDS: HYDROMORPHONE HCL INJ/PF 2 MG/ML AMPULE IV PRN ×6 (01:53→22:14)
[2019-01-26] MEDS: NORMAL SALINE 1000 ML 1,000 ML IV PRN ×2 (01:57→22:15)
[2019-01-26] MEDS: CEFAZOLIN SODIUM 1 GM in DEXTROSE 5%-WATER 50 ML IV SCH ×3 (01:58→18:59)
[2019-01-26] MEDS: KETOROLAC TROMETHAMINE INJ/PF 30 MG/1 ML SDV IV PRN ×5 (03:16→20:01)
[2019-01-26 04:32] LABS: ABSOLUTE BASOPHILS # (AUTO) 0.1 10^3/uL (0.0-0.2); ABSOLUTE EOSINOPHILS # (AUTO) 0.2 10^3/uL (0.0-0.6); ABSOLUTE LYMPHOCYTES (AUTO) 1.7 10^3/uL (0.5-4.7); ABSOLUTE MONOCYTES (AUTO) 1.1 10^3/uL (0.1-1.4); ABSOLUTE NEUT (AUTO) 11.8 10^3/uL (1.7-8.2); BASOPHILS % (AUTO) 0.5 % (0-2); EOSINOPHILS % (AUTO) 1.1 % (0-6); HEMATOCRIT 37.3 % (36.0-47.0); HEMOGLOBIN 12.4 g/dL (12.0-15.5); LYMPHOCYTES % (AUTO) 11.6 % (13-45); MEAN CORPUSCULAR HEMOGLOBIN 29.6 pg (27.0-33.4); MEAN CORPUSCULAR HGB CONC 33.3 g/dL (32.0-36.0); MEAN CORPUSCULAR VOLUME 89 fl (80-97); MONOCYTES % (AUTO) 7.1 % (3-13); PLATELET COUNT 220 10^3/uL (150-450); RED CELL DISTRIBUTION WIDTH 13.9 % (11.5-14.0); SEGMENTED NEUTROPHILS % (AUTO) 79.7 % (42-78); TOTAL CELLS COUNTED % (AUTO) 100 %; WHITE BLOOD COUNT 14.8 10^3/uL (4.0-10.5)
[2019-01-26] MEDS: OXYCODONE-ACETAMINOPHEN 5-325 MG TABLET PO PRN ×2 (04:35→23:49)
[2019-01-26 04:47] LABS: ALBUMIN 2.5 g/dL (3.5-5.0); ALKALINE PHOSPHATASE 85 U/L (38-126); ANION GAP 9 (5-19); ASPARTATE AMINO TRANSFERASE 58 U/L (14-36); BILIRUBIN,DIRECT 1.5 mg/dL (0.0-0.4); BILIRUBIN,TOTAL 2.6 mg/dL (0.2-1.3); BLOOD UREA NITROGEN 8 mg/dL (7-20); CALCIUM 7.6 mg/dL (8.4-10.2); CARBON DIOXIDE 24 mmol/L (22-30); CHLORIDE 103 mmol/L (98-107); GLUCOSE 100 mg/dL (75-110); POTASSIUM 3.7 mmol/L (3.6-5.0); TOTAL PROTEIN 5.3 g/dL (6.3-8.2)
[2019-01-26] MEDS ORDERED: MORPHINE SULFATE 10 MG/ML INJ IV PRN (05:11)
[2019-01-26] MEDS: ONDANSETRON HCL INJ/PF 4 MG/2 ML SDV IV PRN (09:30)
[2019-01-26] MEDS: ENOXAPARIN SODIUM INJ 40 MG/0.4 ML DISP.SYRIN SUBCUT SCH (09:30)
[2019-01-26] MEDS ORDERED: HYDROMORPHONE HCL 2 MG TABLET ONE ×2 (09:34→15:48)
[2019-01-26] MEDS ORDERED: HYDROMORPHONE HCL INJ/PF 2 MG/ML AMPULE ONE (09:35)
--- NOTE | 2019-01-26 12:11 | RADIOLOGY REPORT (SQ) ---
EXAM DESCRIPTION: ACUTE ABDOMEN SERIES COMPLETED DATE/TIME: 01/26/2019 10:47 am REASON FOR STUDY: abd pain COMPARISON: ERCP 01/24/2019 NUMBER OF VIEWS: Three views. TECHNIQUE: Frontal chest, supine abdomen and upright/decubitus abdomen radiographic images acquired. LIMITATIONS: None. FINDINGS: CHEST: Consolidation in the left and right posterior lung bases, atelectasis versus pneumo mame. No gross pleural effusion or pneumothorax. Cardiac silhouette size, paradise unremarkable. No sub diaphragmatic free air. FREE AIR: None. No abnormal gas collections. BOWEL GAS PATTERN: Nonobstructive pattern. No dilated loops or air fluid levels. CALCIFICATIONS: No suspicious calcifications. HARDWARE: There are clips right upper quadrant post cholecystectomy. Minimal soft tissue air along t he right lateral abdominal wall, along the course of the right upper quadrant catheter. IUD in the u terus SOFT TISSUES: No gross mass or suggestion of organomegaly. BONES: No acute fracture. No worrisome bone lesions. OTHER: No other significant finding. IMPRESSION: Bibasilar consolidation atelectasis or pneumonia. Findings discussed with Dr. Conde Post cholecystectomy with radiopaque right upper quadrant drain. Grossly nonobstructive bowel gas pattern TECHNICAL DOCUMENTATION: JOB ID: [id number] [employer]- All Rights Reserved Reading location - IP/workstation name: [email or web address]
[2019-01-26] MEDS: CYCLOBENZAPRINE HCL 10 MG TABLET PO SCH ×2 (12:39→22:15)
[2019-01-26] MEDS ORDERED: GLYCERIN (ADULT) SUPP.RECT PR ONE ×3 (16:00→19:52)
--- NOTE | 2019-01-26 18:23 | PDOC PROGRESS REPORT ---
Subjective Progress Note for:: 01/26/19 Subjective:: Complaining of a lot of back pains. Abdominal x-rays revealed no intra- abdominal abnormality. Has a atelectatic changes in the left lung base possibly starting pneumonia. This was discussed with the radiologist Reason For Visit: GALLSTONE PANCREATITIS CHOLELITHIASIS Physical Exam Vital Signs: Temp Pulse Resp BP Pulse Ox 99.0 F 121 H 18 105/70 98 01/26/19 15:25 01/26/19 15:25 01/26/19 15:25 01/26/19 15:25 01/26/19 15:25 Intake & Output 01/25/19 01/26/19 01/27/19 06:59 06:59 06:59 Intake Total 5250 1530 730 Output Total 3550 730 20 Balance 1700 800 710 Weight 99.8 kg 110.8 kg 110.8 kg Exam: Abdomen is soft and nontender. CLAUDIA drain small amount of clear light yellowish drainage. Results Laboratory Results: 01/26/19 03:28 01/26/19 03:28 01/26/19 01/26/19 03:28 03:28 WBC 14.8 H RBC 4.20 Hgb 12.4 Hct 37.3 MCV 89 MCH 29.6 MCHC 33.3 RDW 13.9 Plt Count 220 Seg Neutrophils % 79.7 H Sodium 135.6 L Potassium 3.7 Chloride 103 Carbon Dioxide 24 Anion Gap 9 BUN 8 Creatinine 0.55 Est GFR ( Amer) > 60 Glucose 100 Calcium 7.6 L Total Bilirubin 2.6 H AST 58 H Alkaline Phosphatase 85 Total Protein 5.3 L Albumin 2.5 L Lipase 778.5 H Impressions: Abdomen Ultrasound 01/22/19 15:38 IMPRESSION: Cholelithiasis. No acute inflammatory changes identified. Mild fatty liver. Catheter Placement 01/24/19 00:00 IMPRESSION: IMAGE(S) OBTAINED DURING PROCEDURE. Fluoroscopy 01/24/19 00:00 IMPRESSION: IMAGE(S) OBTAINED DURING PROCEDURE. Acute Abdomen Series 01/26/19 10:11 IMPRESSION: Bibasilar consolidation atelectasis or pneumonia. Findings discussed with Dr. Conde Post cholecystectomy with radiopaque right upper quadrant drain. Grossly nonobstructive bowel gas pattern Assessment & Plan - Diagnosis (1) Back pain Qualifiers: Back pain location: low back pain Chronicity: acute Back pain laterality: bilateral Sciatica presence: without sciatica Qualified Code(s): M54.5 - Low back pain Is this a current diagnosis for this admission?: Yes (2) Elevated LFTs Is this a current diagnosis for this admission?: Yes (3) Gallstone pancreatitis Is this a current diagnosis for this admission?: Yes (4) Nausea and vomiting Qualifiers: Vomiting type: unspecified Vomiting Intractability: non-intractable Qualified Code(s): R11.2 - Nausea with vomiting, unspecified Is this a current diagnosis for this admission?: Yes (5) Total bilirubin, elevated Is this a current diagnosis for this admission?: Yes - Time Time Spent with patient: 15-24 minutes - Inpatient Certification Medical Necessity: Need for Pain Control, Need for IV Antibiotics - Plan Summary Plan Summary: Postop day #2 post ERCP and laparoscopic cholecystectomy. Has acute cholecystitis noted intraoperatively by Dr. Pantoja and drain was placed. Her main complaint is back pains which apparently started with the common duct obstruction and cholecystitis. All her liver enzymes and lipase are trending down but the white count is noted to be trending up may be due to starting pneumonia. Patient is seen ambulating with her son. Incentive spirometry also ordered and she is using it Plans: Continue to encourage her to increase her activity and ambulate Continue IV antibiotics Pain medication on a as needed basis and then gradually taper off her narcotic use. Add muscle relaxant medication Continue incentive spirometry
[2019-01-27] MEDS: KETOROLAC TROMETHAMINE INJ/PF 30 MG/1 ML SDV IV PRN ×6 (00:01→21:36)
[2019-01-27] MEDS: HYDROMORPHONE HCL INJ/PF 2 MG/ML AMPULE IV PRN ×5 (01:41→19:35)
[2019-01-27] MEDS: CEFAZOLIN SODIUM 1 GM in DEXTROSE 5%-WATER 50 ML IV SCH ×3 (01:52→17:38)
[2019-01-27] MEDS: OXYCODONE-ACETAMINOPHEN 5-325 MG TABLET PO PRN ×5 (04:05→21:35)
[2019-01-27] MEDS: CYCLOBENZAPRINE HCL 10 MG TABLET PO SCH ×2 (09:49→21:35)
[2019-01-27] MEDS: ENOXAPARIN SODIUM INJ 40 MG/0.4 ML DISP.SYRIN SUBCUT SCH (09:49)
--- NOTE | 2019-01-27 10:12 | PDOC PROGRESS REPORT ---
Subjective Progress Note for:: 01/27/19 Subjective:: Overall patient feels better; still having back pain; tolerating clear liquids. She is ambulating, and voiding. She has an incentive spirometer. Reason For Visit: GALLSTONE PANCREATITIS CHOLELITHIASIS Physical Exam Vital Signs: Temp Pulse Resp BP Pulse Ox 97.9 F 91 16 111/71 94 01/27/19 07:46 01/27/19 07:46 01/27/19 07:46 01/27/19 07:46 01/27/19 07:46 Intake & Output 01/26/19 01/27/19 01/28/19 06:59 06:59 06:59 Intake Total 1530 2590 1000 Output Total 730 1480 20 Balance 800 1110 980 Weight 110.8 kg 108.9 kg General appearance: PRESENT: no acute distress GI/Abdominal exam: PRESENT: other - Minimal serous sanguinous drainage from the drain. The abdomen is appropriately tender but no rigidity. She has some back pain. Results Laboratory Results: 01/26/19 03:28 01/26/19 03:28 Impressions: Abdomen Ultrasound 01/22/19 15:38 IMPRESSION: Cholelithiasis. No acute inflammatory changes identified. Mild fatty liver. Catheter Placement 01/24/19 00:00 IMPRESSION: IMAGE(S) OBTAINED DURING PROCEDURE. Fluoroscopy 01/24/19 00:00 IMPRESSION: IMAGE(S) OBTAINED DURING PROCEDURE. Acute Abdomen Series 01/26/19 10:11 IMPRESSION: Bibasilar consolidation atelectasis or pneumonia. Findings discussed with Dr. Conde Post cholecystectomy with radiopaque right upper quadrant drain. Grossly nonobstructive bowel gas pattern Assessment & Plan - Diagnosis (1) Gallstone pancreatitis Is this a current diagnosis for this admission?: Yes Plan: Impression: Postoperative day 3 status post ERCP, sphincterotomy, sludge extraction from common bile duct followed by laparoscopic cholecystectomy for acute cholecystitis and cholelithiasis, drain placement, overall doing well, sepsis, and pancreatitis resolving Recommendations: 1. Explained to the patient and her that she had severe pancreatitis, significant cholecystitis, with intra-abdominal sepsis. She is now recovering with appropriate fluid shifts. However she will still have some back pain until the ankle otitis resolved 2. Suggested we keep her on clear liquids; her pain is adequately managed. She needs more aggressive pulmonary toilet and will get her a coughing pillow, and encouraged incentive spirometer 3. Continue on IV Ancef; she may require a few more days of hospitalization. (2) Elevated LFTs Is this a current diagnosis for this admission?: Yes (3) Total bilirubin, elevated Is this a current diagnosis for this admission?: Yes - Time Time Spent with patient: 15-24 minutes Smoking Cessation Education: over 10 minutes Medications reviewed and adjusted accordingly: Yes Anticipated discharge: Home
[2019-01-28] MEDS: HYDROMORPHONE HCL INJ/PF 2 MG/ML AMPULE IV PRN ×5 (00:01→20:29)
[2019-01-28] MEDS: KETOROLAC TROMETHAMINE INJ/PF 30 MG/1 ML SDV IV PRN ×5 (01:39→22:30)
[2019-01-28] MEDS: OXYCODONE-ACETAMINOPHEN 5-325 MG TABLET PO PRN ×5 (01:43→22:30)
[2019-01-28] MEDS: CEFAZOLIN SODIUM 1 GM in DEXTROSE 5%-WATER 50 ML IV SCH ×3 (01:43→17:25)
[2019-01-28 07:51] LABS: ALBUMIN 2.4 g/dL (3.5-5.0); ALKALINE PHOSPHATASE 99 U/L (38-126); ASPARTATE AMINO TRANSFERASE 44 U/L (14-36); BILIRUBIN,DIRECT 0.6 mg/dL (0.0-0.4); BILIRUBIN,TOTAL 1.2 mg/dL (0.2-1.3); TOTAL PROTEIN 5.1 g/dL (6.3-8.2)
[2019-01-28] MEDS: CYCLOBENZAPRINE HCL 10 MG TABLET PO SCH ×2 (09:30→21:17)
[2019-01-28] MEDS: ENOXAPARIN SODIUM INJ 40 MG/0.4 ML DISP.SYRIN SUBCUT SCH (09:35)
[2019-01-28] MEDS: LACTOBACILLUS ACIDOPHILUS 250 MG TAB PO SCH ×3 (11:26→17:24)
--- NOTE | 2019-01-28 14:02 | PDOC PROGRESS REPORT ---
Subjective Progress Note for:: 01/28/19 Subjective:: Still complaining of back pain that likely from the pancreatitis. Had good results with bowel movement drinking prune juice yesterday Reason For Visit: GALLSTONE PANCREATITIS CHOLELITHIASIS Physical Exam Vital Signs: Temp Pulse Resp BP Pulse Ox 98.5 F 116 H 18 123/72 95 01/28/19 07:25 01/28/19 07:25 01/28/19 07:25 01/28/19 07:25 01/28/19 07:25 Intake & Output 01/27/19 01/28/19 01/29/19 06:59 06:59 06:59 Intake Total 2590 4462 50 Output Total 1480 3730 20 Balance 1110 732 30 Weight 108.9 kg 107.6 kg Exam: Abdomen is soft with no obvious abdominal tenderness. Results Laboratory Results: 01/26/19 03:28 01/26/19 03:28 01/28/19 07:17 Total Bilirubin 1.2 AST 44 H Alkaline Phosphatase 99 Total Protein 5.1 L Albumin 2.4 L Lipase 538.1 H Impressions: Abdomen Ultrasound 01/22/19 15:38 IMPRESSION: Cholelithiasis. No acute inflammatory changes identified. Mild fatty liver. Catheter Placement 01/24/19 00:00 IMPRESSION: IMAGE(S) OBTAINED DURING PROCEDURE. Fluoroscopy 01/24/19 00:00 IMPRESSION: IMAGE(S) OBTAINED DURING PROCEDURE. Acute Abdomen Series 01/26/19 10:11 IMPRESSION: Bibasilar consolidation atelectasis or pneumonia. Findings discussed with Dr. Conde Post cholecystectomy with radiopaque right upper quadrant drain. Grossly nonobstructive bowel gas pattern Assessment & Plan - Diagnosis (1) Back pain Qualifiers: Back pain location: low back pain Chronicity: acute Back pain laterality: bilateral Sciatica presence: without sciatica Qualified Code(s): M54.5 - Low back pain Is this a current diagnosis for this admission?: Yes (2) Elevated LFTs Is this a current diagnosis for this admission?: Yes (3) Gallstone pancreatitis Is this a current diagnosis for this admission?: Yes (4) Nausea and vomiting Qualifiers: Vomiting type: unspecified Vomiting Intractability: non-intractable Qualified Code(s): R11.2 - Nausea with vomiting, unspecified Is this a current diagnosis for this admission?: Yes (5) Total bilirubin, elevated Is this a current diagnosis for this admission?: Yes - Time Time Spent with patient: 15-24 minutes - Inpatient Certification Medical Necessity: Need for IV Antibiotics - Plan Summary Plan Summary: Her LFTs and lipase this morning are practically normal. Plan: 1 increase diet to full liquids 2) continue ambulation and incentive spirometry 3) continue IV antibiotics next 24 to 48 hours especially if the white count goes down to normal 4.) Check WBC in a.m.
[2019-01-29] MEDS: HYDROMORPHONE HCL INJ/PF 2 MG/ML AMPULE IV PRN ×4 (00:23→18:05)
[2019-01-29] MEDS: KETOROLAC TROMETHAMINE INJ/PF 30 MG/1 ML SDV IV PRN ×3 (02:45→21:48)
[2019-01-29] MEDS: OXYCODONE-ACETAMINOPHEN 5-325 MG TABLET PO PRN ×4 (02:45→21:48)
[2019-01-29] MEDS: CEFAZOLIN SODIUM 1 GM in DEXTROSE 5%-WATER 50 ML IV SCH ×3 (02:46→18:04)
[2019-01-29 05:20] LABS: HEMATOCRIT 32.9 % (36.0-47.0); HEMOGLOBIN 10.8 g/dL (12.0-15.5); MEAN CORPUSCULAR HEMOGLOBIN 29.4 pg (27.0-33.4); MEAN CORPUSCULAR HGB CONC 32.9 g/dL (32.0-36.0); MEAN CORPUSCULAR VOLUME 89 fl (80-97); PLATELET COUNT 286 10^3/uL (150-450); RED BLOOD COUNT 3.68 10^6/uL (3.72-5.28); RED CELL DISTRIBUTION WIDTH 13.6 % (11.5-14.0); WHITE BLOOD COUNT 12.8 10^3/uL (4.0-10.5)
[2019-01-29 05:55] LABS: ABSOLUTE LYMPHOCYTES# (MANUAL) 2.2 10^3/uL (0.5-4.7); ABSOLUTE MONOCYTES # (MANUAL) 1.3 10^3/uL (0.1-1.4); BAND NEUTROPHILS % (MANUAL) 2 % (3-5); BASOPHILS % (MANUAL) 0 % (0-2); EOSINOPHILS % (MANUAL) 3 % (0-6); LYMPHOCYTES % (MANUAL) 17 % (13-45); METAMYELOCYTES % (MANUAL) 2 % (0); MONOCYTES % (MANUAL) 10 % (3-13); SEGMENTED NEUTROPHILS % (MAN) 66 % (42-78); TOTAL CELLS COUNTED 100
[2019-01-29 05:56] LABS: PLATELET COMMENT ADEQUATE; RBC MORPHOLOGY COMMENT NORMO-CYTIC/CHROMIC
[2019-01-29] MEDS: CYCLOBENZAPRINE HCL 10 MG TABLET PO SCH ×2 (10:08→21:48)
[2019-01-29] MEDS: LACTOBACILLUS ACIDOPHILUS 250 MG TAB PO SCH ×3 (10:09→18:04)
[2019-01-29] MEDS: ENOXAPARIN SODIUM INJ 40 MG/0.4 ML DISP.SYRIN SUBCUT SCH (10:12)
--- NOTE | 2019-01-29 17:08 | PDOC PROGRESS REPORT ---
Subjective Progress Note for:: 01/29/19 Subjective:: Still with back pains but getting less. Abdominal pains also improving Reason For Visit: GALLSTONE PANCREATITIS CHOLELITHIASIS Physical Exam Vital Signs: Temp Pulse Resp BP Pulse Ox 99.5 F 113 H 16 121/66 95 01/29/19 14:50 01/29/19 14:50 01/29/19 14:50 01/29/19 14:50 01/29/19 14:50 Intake & Output 01/28/19 01/29/19 01/30/19 06:59 06:59 06:59 Intake Total 4462 1556 1160 Output Total 3733 5868 6167 Balance 569 -0933 -7023 Weight 107.6 kg 108.1 kg 108.1 kg Exam: Abdomen is soft with mild diffuse tenderness. Results Laboratory Results: 01/29/19 05:00 01/26/19 03:28 01/29/19 05:00 WBC 12.8 H RBC 3.68 L Hgb 10.8 L Hct 32.9 L MCV 89 MCH 29.4 MCHC 32.9 RDW 13.6 Plt Count 286 Seg Neutrophils % Not Reportable Impressions: Abdomen Ultrasound 01/22/19 15:38 IMPRESSION: Cholelithiasis. No acute inflammatory changes identified. Mild fatty liver. Catheter Placement 01/24/19 00:00 IMPRESSION: IMAGE(S) OBTAINED DURING PROCEDURE. Fluoroscopy 01/24/19 00:00 IMPRESSION: IMAGE(S) OBTAINED DURING PROCEDURE. Acute Abdomen Series 01/26/19 10:11 IMPRESSION: Bibasilar consolidation atelectasis or pneumonia. Findings discussed with Dr. Conde Post cholecystectomy with radiopaque right upper quadrant drain. Grossly nonobstructive bowel gas pattern Assessment & Plan - Diagnosis (1) Back pain Qualifiers: Back pain location: low back pain Chronicity: acute Back pain laterality: bilateral Sciatica presence: without sciatica Qualified Code(s): M54.5 - Low back pain Is this a current diagnosis for this admission?: Yes (2) Elevated LFTs Is this a current diagnosis for this admission?: Yes (3) Gallstone pancreatitis Is this a current diagnosis for this admission?: Yes (4) Nausea and vomiting Qualifiers: Vomiting type: unspecified Vomiting Intractability: non-intractable Qualified Code(s): R11.2 - Nausea with vomiting, unspecified Is this a current diagnosis for this admission?: Yes (5) Total bilirubin, elevated Is this a current diagnosis for this admission?: Yes - Time Time Spent with patient: 15-24 minutes - Inpatient Certification Medical Necessity: Need for Pain Control, Need for IV Antibiotics - Plan Summary Plan Summary: Her WBC is trending down and all her liver enzymes and lipase are practically normal. Peripancreatitis appears to be resolving Plans: Gradually increase the diet to soft diet. Continue IV antibiotics in the next 48hours Will discharge when tolerating regular diet and white count is normal
[2019-01-30] MEDS: HYDROMORPHONE HCL INJ/PF 2 MG/ML AMPULE IV PRN ×5 (00:42→21:01)
[2019-01-30] MEDS: CEFAZOLIN SODIUM 1 GM in DEXTROSE 5%-WATER 50 ML IV SCH ×3 (01:55→19:09)
[2019-01-30] MEDS: OXYCODONE-ACETAMINOPHEN 5-325 MG TABLET PO PRN ×5 (03:28→23:31)
[2019-01-30 06:50] LABS: HEMATOCRIT 32.1 % (36.0-47.0); MEAN CORPUSCULAR HEMOGLOBIN 30.2 pg (27.0-33.4); MEAN CORPUSCULAR HGB CONC 34.1 g/dL (32.0-36.0); MEAN CORPUSCULAR VOLUME 89 fl (80-97); PLATELET COUNT 326 10^3/uL (150-450); RED BLOOD COUNT 3.63 10^6/uL (3.72-5.28); RED CELL DISTRIBUTION WIDTH 13.7 % (11.5-14.0); WHITE BLOOD COUNT 10.8 10^3/uL (4.0-10.5)
[2019-01-30 07:12] LABS: ALBUMIN 2.4 g/dL (3.5-5.0); ALKALINE PHOSPHATASE 99 U/L (38-126); ANION GAP 8 (5-19); ASPARTATE AMINO TRANSFERASE 44 U/L (14-36); BILIRUBIN,DIRECT 0.5 mg/dL (0.0-0.4); BILIRUBIN,TOTAL 0.9 mg/dL (0.2-1.3); BLOOD UREA NITROGEN 3 mg/dL (7-20); CALCIUM 8.1 mg/dL (8.4-10.2); CARBON DIOXIDE 29 mmol/L (22-30); CHLORIDE 102 mmol/L (98-107); GLUCOSE 95 mg/dL (75-110); POTASSIUM 3.5 mmol/L (3.6-5.0); TOTAL PROTEIN 5.2 g/dL (6.3-8.2)
[2019-01-30 07:48] LABS: ABSOLUTE LYMPHOCYTES# (MANUAL) 1.5 10^3/uL (0.5-4.7); ABSOLUTE MONOCYTES # (MANUAL) 0.8 10^3/uL (0.1-1.4); BAND NEUTROPHILS % (MANUAL) 1 % (3-5); BASOPHILS % (MANUAL) 1 % (0-2); EOSINOPHILS % (MANUAL) 2 % (0-6); LYMPHOCYTES % (MANUAL) 12 % (13-45); MONOCYTES % (MANUAL) 7 % (3-13); NUCLEATED RED BLOOD CELLS 1 /100 WBC (0); POLYCHROMASIA SLIGHT; SEGMENTED NEUTROPHILS % (MAN) 75 % (42-78); TOTAL CELLS COUNTED 100; TOXIC GRANULATION 1+
[2019-01-30 07:49] LABS: PLATELET COMMENT ADEQUATE
[2019-01-30] MEDS: CYCLOBENZAPRINE HCL 10 MG TABLET PO SCH ×2 (09:44→21:04)
[2019-01-30] MEDS: LACTOBACILLUS ACIDOPHILUS 250 MG TAB PO SCH ×3 (09:44→17:24)
[2019-01-30] MEDS: ENOXAPARIN SODIUM INJ 40 MG/0.4 ML DISP.SYRIN SUBCUT SCH (09:44)
[2019-01-30] MEDS: NYSTATIN 500000 UNIT/5 ML UDCUP PO SCH (17:24)
--- NOTE | 2019-01-30 19:52 | PDOC PROGRESS REPORT ---
Subjective Progress Note for:: 01/30/19 Reason For Visit: GALLSTONE PANCREATITIS CHOLELITHIASIS Physical Exam Vital Signs: Temp Pulse Resp BP Pulse Ox 99.1 F 105 H 16 122/68 96 01/30/19 19:10 01/30/19 19:10 01/30/19 19:10 01/30/19 19:10 01/30/19 19:10 Intake & Output 01/29/19 01/30/19 01/31/19 06:59 06:59 06:59 Intake Total 1556 1841 1306 Output Total 9283 2390 60 Balance -7614 -549 1246 Weight 108.1 kg 107 kg Results Laboratory Results: 01/30/19 06:32 01/30/19 06:32 01/30/19 01/30/19 06:32 06:32 WBC 10.8 H RBC 3.63 L Hgb 11.0 L Hct 32.1 L MCV 89 MCH 30.2 MCHC 34.1 RDW 13.7 Plt Count 326 Seg Neutrophils % Not Reportable Sodium 138.7 Potassium 3.5 L Chloride 102 Carbon Dioxide 29 Anion Gap 8 BUN 3 L Creatinine 0.57 Est GFR ( Amer) > 60 Glucose 95 Calcium 8.1 L Total Bilirubin 0.9 AST 44 H Alkaline Phosphatase 99 Total Protein 5.2 L Albumin 2.4 L Lipase 669.0 H 01/25/19 17:21 Blood Blood Culture - Final NO GROWTH IN 5 DAYS 01/25/19 17:04 Blood Blood Culture - Final NO GROWTH IN 5 DAYS Impressions: Abdomen Ultrasound 01/22/19 15:38 IMPRESSION: Cholelithiasis. No acute inflammatory changes identified. Mild fatty liver. Catheter Placement 01/24/19 00:00 IMPRESSION: IMAGE(S) OBTAINED DURING PROCEDURE. Fluoroscopy 01/24/19 00:00 IMPRESSION: IMAGE(S) OBTAINED DURING PROCEDURE. Acute Abdomen Series 01/26/19 10:11 IMPRESSION: Bibasilar consolidation atelectasis or pneumonia. Findings discussed with Dr. Conde Post cholecystectomy with radiopaque right upper quadrant drain. Grossly nonobstructive bowel gas pattern Assessment & Plan - Time Time Spent with patient: Less than 15 minutes - Plan Summary Plan Summary: This is a 38-year-old female status post ERCP and cholecystectomy for choledocholithiasis and biliary pancreatitis. She is slowly improving. She still reports significant abdominal pain. She occasionally requires IV narcotics. She is tolerating liquids, but still has significant pain. She reports that she still has "no appetite". I will maintain her on liquids for today. I will see how she progresses tomorrow. Advance diet, as the patient tolerates. Home once pain is controlled and she is tolerating regular diet.
[2019-01-30] MEDS ORDERED: NORMAL SALINE 1000 ML 1,000 ML IV PRN (20:51)
[2019-01-31] MEDS: HYDROMORPHONE HCL INJ/PF 2 MG/ML AMPULE IV PRN ×2 (01:23→06:15)
[2019-01-31] MEDS: OXYCODONE-ACETAMINOPHEN 5-325 MG TABLET PO PRN ×5 (03:44→22:31)
[2019-01-31] MEDS: CEFAZOLIN SODIUM 1 GM in DEXTROSE 5%-WATER 50 ML IV SCH ×3 (03:44→17:39)
[2019-01-31 08:58] LABS: ALBUMIN 2.9 g/dL (3.5-5.0); ALKALINE PHOSPHATASE 112 U/L (38-126); ANION GAP 10 (5-19); ASPARTATE AMINO TRANSFERASE 47 U/L (14-36); BILIRUBIN,DIRECT 0.6 mg/dL (0.0-0.4); BLOOD UREA NITROGEN 4 mg/dL (7-20); CALCIUM 8.7 mg/dL (8.4-10.2); CARBON DIOXIDE 27 mmol/L (22-30); CHLORIDE 101 mmol/L (98-107); GLUCOSE 85 mg/dL (75-110); POTASSIUM 4.4 mmol/L (3.6-5.0); TOTAL PROTEIN 6.2 g/dL (6.3-8.2)
[2019-01-31] MEDS: LACTOBACILLUS ACIDOPHILUS 250 MG TAB PO SCH ×3 (09:03→17:39)
[2019-01-31] MEDS: CYCLOBENZAPRINE HCL 10 MG TABLET PO SCH ×2 (09:03→22:31)
[2019-01-31] MEDS: NYSTATIN 500000 UNIT/5 ML UDCUP PO SCH ×3 (09:04→17:42)
[2019-01-31] MEDS: ENOXAPARIN SODIUM INJ 40 MG/0.4 ML DISP.SYRIN SUBCUT SCH (09:04)
--- NOTE | 2019-01-31 20:13 | PDOC PROGRESS REPORT ---
Subjective Progress Note for:: 01/31/19 Subjective:: Still with back pains Reason For Visit: GALLSTONE PANCREATITIS CHOLELITHIASIS Physical Exam Vital Signs: Temp Pulse Resp BP Pulse Ox 99.9 F 108 H 20 115/68 99 01/31/19 15:50 01/31/19 15:50 01/31/19 15:50 01/31/19 15:50 01/31/19 15:50 Intake & Output 01/30/19 01/31/19 02/01/19 06:59 06:59 06:59 Intake Total 1841 1676 850 Output Total 2390 80 38 Balance -549 1596 812 Weight 107 kg 106 kg Exam: Abdomen is soft and minimal tenderness. CLAUDIA drain still draining serosanguineous about 80 cc. Results Laboratory Results: 01/30/19 06:32 01/31/19 08:05 01/31/19 08:05 Sodium 138.2 Potassium 4.4 Chloride 101 Carbon Dioxide 27 Anion Gap 10 BUN 4 L Creatinine 0.61 Est GFR ( Amer) > 60 Glucose 85 Calcium 8.7 Total Bilirubin 1.0 AST 47 H Alkaline Phosphatase 112 Total Protein 6.2 L Albumin 2.9 L Lipase 761.8 H 01/25/19 17:21 Blood Blood Culture - Final NO GROWTH IN 5 DAYS 01/25/19 17:04 Blood Blood Culture - Final NO GROWTH IN 5 DAYS Impressions: Abdomen Ultrasound 01/22/19 15:38 IMPRESSION: Cholelithiasis. No acute inflammatory changes identified. Mild fatty liver. Catheter Placement 01/24/19 00:00 IMPRESSION: IMAGE(S) OBTAINED DURING PROCEDURE. Fluoroscopy 01/24/19 00:00 IMPRESSION: IMAGE(S) OBTAINED DURING PROCEDURE. Acute Abdomen Series 01/26/19 10:11 IMPRESSION: Bibasilar consolidation atelectasis or pneumonia. Findings discussed with Dr. Conde Post cholecystectomy with radiopaque right upper quadrant drain. Grossly nonobstructive bowel gas pattern Assessment & Plan - Diagnosis (1) Back pain Qualifiers: Back pain location: low back pain Chronicity: acute Back pain laterality: bilateral Sciatica presence: without sciatica Qualified Code(s): M54.5 - Low back pain Is this a current diagnosis for this admission?: Yes (2) Elevated LFTs Is this a current diagnosis for this admission?: Yes (3) Gallstone pancreatitis Is this a current diagnosis for this admission?: Yes (4) Nausea and vomiting Qualifiers: Vomiting type: unspecified Vomiting Intractability: non-intractable Q ualified Code(s): R11.2 - Nausea with vomiting, unspecified Is this a current diagnosis for this admission?: Yes (5) Total bilirubin, elevated Is this a current diagnosis for this admission?: Yes - Time Time Spent with patient: 15-24 minutes - Inpatient Certification Medical Necessity: Need Close Monitoring Due to Risk of Patient Decompensation, Need for IV Antibiotics - Plan Summary Plan Summary: Patient is being weaned from parenteral narcotics so she can go home the next 24 to 48hours. We will discharge her with her CLAUDIA drain in place and this can be taken out in the office in about a week. We will continue the IV antibiotics for about 24 to 48 hours. We will repeat her lipase in a.m. to see if it is really trending down to normal so she can be discharged
[2019-02-01] MEDS: OXYCODONE-ACETAMINOPHEN 5-325 MG TABLET PO PRN ×6 (02:47→23:51)
[2019-02-01 08:30] LABS: HEMATOCRIT 34.3 % (36.0-47.0); HEMOGLOBIN 11.3 g/dL (12.0-15.5); MEAN CORPUSCULAR HEMOGLOBIN 29.1 pg (27.0-33.4); MEAN CORPUSCULAR HGB CONC 32.9 g/dL (32.0-36.0); MEAN CORPUSCULAR VOLUME 88 fl (80-97); PLATELET COUNT 447 10^3/uL (150-450); RED BLOOD COUNT 3.88 10^6/uL (3.72-5.28); RED CELL DISTRIBUTION WIDTH 13.7 % (11.5-14.0); WHITE BLOOD COUNT 14.6 10^3/uL (4.0-10.5)
[2019-02-01 08:50] LABS: ABSOLUTE LYMPHOCYTES# (MANUAL) 2.2 10^3/uL (0.5-4.7); ABSOLUTE MONOCYTES # (MANUAL) 0.9 10^3/uL (0.1-1.4); BAND NEUTROPHILS % (MANUAL) 3 % (3-5); BASOPHILS % (MANUAL) 1 % (0-2); EOSINOPHILS % (MANUAL) 1 % (0-6); LYMPHOCYTES % (MANUAL) 15 % (13-45); METAMYELOCYTES % (MANUAL) 2 % (0-1); MONOCYTES % (MANUAL) 6 % (3-13); SEGMENTED NEUTROPHILS % (MAN) 72 % (42-78); TOTAL CELLS COUNTED 100
[2019-02-01 08:52] LABS: PLATELET COMMENT ADEQUATE; POLYCHROMASIA SLIGHT
[2019-02-01] MEDS: LACTOBACILLUS ACIDOPHILUS 250 MG TAB PO SCH ×3 (10:28→17:41)
[2019-02-01] MEDS: CYCLOBENZAPRINE HCL 10 MG TABLET PO SCH ×2 (10:28→21:31)
[2019-02-01] MEDS: ENOXAPARIN SODIUM INJ 40 MG/0.4 ML DISP.SYRIN SUBCUT SCH (10:29)
[2019-02-01] MEDS: NYSTATIN 500000 UNIT/5 ML UDCUP PO SCH ×3 (10:29→17:43)
[2019-02-01] MEDS: PIPERACILLIN SODIUM/TAZOBACTAM 3.375 GM in NORMAL SALINE 100 ML IV SCH ×2 (17:43→23:51)
--- NOTE | 2019-02-01 17:51 | PDOC PROGRESS REPORT ---
Subjective Progress Note for:: 02/01/19 Subjective:: Feels better today. Still constipated Reason For Visit: GALLSTONE PANCREATITIS CHOLELITHIASIS Physical Exam Vital Signs: Temp Pulse Resp BP Pulse Ox 98.5 F 94 18 113/62 96 02/01/19 08:10 02/01/19 08:10 02/01/19 08:10 02/01/19 08:10 02/01/19 08:10 Intake & Output 01/31/19 02/01/19 02/02/19 06:59 06:59 06:59 Intake Total 1676 1430 480 Output Total 80 103 Balance 1596 1327 480 Weight 106 kg 106.2 kg 106.2 kg Exam: Abdomen is soft and with minimal tenderness. CLAUDIA drained a yellowish fluid about 30cc. Results Laboratory Results: 02/01/19 08:05 01/31/19 08:05 02/01/19 02/01/19 08:05 08:05 WBC 14.6 H RBC 3.88 Hgb 11.3 L Hct 34.3 L MCV 88 MCH 29.1 MCHC 32.9 RDW 13.7 Plt Count 447 Seg Neutrophils % Not Reportable Lipase 649.1 H Impressions: Abdomen Ultrasound 01/22/19 15:38 IMPRESSION: Cholelithiasis. No acute inflammatory changes identified. Mild fatty liver. Catheter Placement 01/24/19 00:00 IMPRESSION: IMAGE(S) OBTAINED DURING PROCEDURE. Fluoroscopy 01/24/19 00:00 IMPRESSION: IMAGE(S) OBTAINED DURING PROCEDURE. Acute Abdomen Series 01/26/19 10:11 IMPRESSION: Bibasilar consolidation atelectasis or pneumonia. Findings discussed with Dr. Conde Post cholecystectomy with radiopaque right upper quadrant drain. Grossly nonobstructive bowel gas pattern Assessment & Plan - Diagnosis (1) Back pain Qualifiers: Back pain location: low back pain Chronicity: acute Back pain laterality: bilateral Sciatica presence: without sciatica Qualified Code(s): M54.5 - Low back pain Is this a current diagnosis for this admission?: Yes (2) Elevated LFTs Is this a current diagnosis for this admission?: Yes (3) Gallstone pancreatitis Is this a current diagnosis for this admission?: Yes (4) Nausea and vomiting Qualifiers: Vomiting type: unspecified Vomiting Intractability: non-intractable Qualified Code(s): R11.2 - Nausea with vomiting, unspecified Is this a current diagnosis for this admission?: Yes (5) Total bilirubin, elevated Is this a current diagnosis for this admission?: Yes - Time Time Spent with patient: 15-24 minutes - Inpatient Certification Medical Necessity: Need for Pain Control, Need for IV Antibiotics - Plan Summary Plan Summary: Patient's wbc increased to 14.6 but the lipase went down to 649 from 761. She feels she is not ready to go home yet today. Plans: Will empirically start Zosyn for white count going up to 14.6. Her temp is 98.5 Will check CXR to R/O pneumonia.We will repeat the white count in the morning and if it remains elevated we may have to keep her on p.o. antibiotics on discharge. We will keep the drain in place and remove it in about a week in the surgical clinic.
--- NOTE | 2019-02-01 18:32 | RADIOLOGY REPORT (SQ) ---
EXAM DESCRIPTION: CHEST SINGLE VIEW COMPLETED DATE/TIME: 02/01/2019 6:15 pm REASON FOR STUDY: R/O Pneumonia COMPARISON: None. EXAM PARAMETERS: NUMBER OF VIEWS: One view. TECHNIQUE: Single frontal radiographic view of the chest acquired. RADIATION DOSE: NA LIMITATIONS: None. FINDINGS: LUNGS AND PLEURA: There is slight haziness in the left base. MEDIASTINUM AND HILAR STRUCTURES: No masses. Contour normal. HEART AND VASCULAR STRUCTURES: Heart normal in size. Normal vasculature. BONES: No acute findings. HARDWARE: None in the chest. OTHER: No other significant finding. IMPRESSION: Cannot exclude a limited left lower lobe pneumonia. TECHNICAL DOCUMENTATION: JOB ID: [id number] [employer]- All Rights Reserved Reading location - IP/workstation name: [email or web address]
[2019-02-01] MEDS: RINGERS SOLUTION,LACTATED 1,000 ML IV PRN (23:57)
[2019-02-02] MEDS: OXYCODONE-ACETAMINOPHEN 5-325 MG TABLET PO PRN ×5 (03:50→21:22)
[2019-02-02] MEDS: PIPERACILLIN SODIUM/TAZOBACTAM 3.375 GM in NORMAL SALINE 100 ML IV SCH ×4 (05:33→23:11)
[2019-02-02 06:34] LABS: HEMATOCRIT 34.8 % (36.0-47.0); HEMOGLOBIN 11.6 g/dL (12.0-15.5); MEAN CORPUSCULAR HEMOGLOBIN 29.6 pg (27.0-33.4); MEAN CORPUSCULAR HGB CONC 33.5 g/dL (32.0-36.0); MEAN CORPUSCULAR VOLUME 88 fl (80-97); PLATELET COUNT 442 10^3/uL (150-450); RED BLOOD COUNT 3.94 10^6/uL (3.72-5.28); RED CELL DISTRIBUTION WIDTH 13.4 % (11.5-14.0); WHITE BLOOD COUNT 12.9 10^3/uL (4.0-10.5)
[2019-02-02 07:17] LABS: ABSOLUTE LYMPHOCYTES# (MANUAL) 2.6 10^3/uL (0.5-4.7); ABSOLUTE MONOCYTES # (MANUAL) 0.9 10^3/uL (0.1-1.4); BAND NEUTROPHILS % (MANUAL) 4 % (3-5); BASOPHILS % (MANUAL) 0 % (0-2); EOSINOPHILS % (MANUAL) 0 % (0-6); LYMPHOCYTES % (MANUAL) 20 % (13-45); MONOCYTES % (MANUAL) 7 % (3-13); SEGMENTED NEUTROPHILS % (MAN) 69 % (42-78); TOTAL CELLS COUNTED 100
[2019-02-02 07:18] LABS: HYPOCHROMASIA SLIGHT; PLATELET COMMENT ADEQUATE
[2019-02-02] MEDS: NYSTATIN 500000 UNIT/5 ML UDCUP PO SCH ×3 (09:15→17:28)
[2019-02-02] MEDS: CYCLOBENZAPRINE HCL 10 MG TABLET PO SCH ×2 (09:15→21:22)
[2019-02-02] MEDS: LACTOBACILLUS ACIDOPHILUS 250 MG TAB PO SCH ×3 (09:15→17:28)
[2019-02-02] MEDS ORDERED: BISACODYL 10 MG SUPP.RECT PR ONE (09:15)
[2019-02-02] MEDS: ENOXAPARIN SODIUM INJ 40 MG/0.4 ML DISP.SYRIN SUBCUT SCH (09:15)
--- NOTE | 2019-02-02 09:18 | PDOC PROGRESS REPORT ---
Subjective Progress Note for:: 02/02/19 Subjective:: feels ok hong better Reason For Visit: GALLSTONE PANCREATITIS CHOLELITHIASIS Physical Exam Vital Signs: Temp Pulse Resp BP Pulse Ox 97.9 F 92 16 118/64 94 02/01/19 23:24 02/01/19 23:24 02/01/19 20:10 02/01/19 23:24 02/01/19 23:24 Intake & Output 02/01/19 02/02/19 02/03/19 06:59 06:59 06:59 Intake Total 1430 2800 Output Total 103 10 Balance 1327 2790 Weight 106.2 kg 106.2 kg General appearance: PRESENT: no acute distress Head exam: PRESENT: normocephalic Eye exam: PRESENT: EOMI Ear exam: PRESENT: normal external ear exam Mouth exam: PRESENT: moist Neck exam: PRESENT: full ROM Respiratory exam: PRESENT: clear to auscultation zan Cardiovascular exam: PRESENT: tachycardia Pulses: PRESENT: normal femoral pulses, normal dorsalis pedis pul GI/Abdominal exam: PRESENT: soft Rectal exam: PRESENT: deferred Extremities exam: PRESENT: full ROM Musculoskeletal exam: PRESENT: full ROM Neurological exam: PRESENT: alert, altered, awake, oriented to person, oriented to place, oriented to time, oriented to situation Psychiatric exam: PRESENT: appropriate affect Skin exam: PRESENT: dry Results Laboratory Results: 02/02/19 05:39 01/31/19 08:05 02/02/19 02/02/19 05:39 05:39 WBC 12.9 H RBC 3.94 Hgb 11.6 L Hct 34.8 L MCV 88 MCH 29.6 MCHC 33.5 RDW 13.4 Plt Count 442 Seg Neutrophils % Not Reportable Lipase 672.9 H Impressions: Abdomen Ultrasound 01/22/19 15:38 IMPRESSION: Cholelithiasis. No acute inflammatory changes identified. Mild fatty liver. Catheter Placement 01/24/19 00:00 IMPRESSION: IMAGE(S) OBTAINED DURING PROCEDURE. Fluoroscopy 01/24/19 00:00 IMPRESSION: IMAGE(S) OBTAINED DURING PROCEDURE. Acute Abdomen Series 01/26/19 10:11 IMPRESSION: Bibasilar consolidation atelectasis or pneumonia. Findings discussed with Dr. Conde Post cholecystectomy with radiopaque right upper quadrant drain. Grossly nonobstructive bowel gas pattern Chest X-Ray 02/01/19 00:00 IMPRESSION: Cannot exclude a limited left lower lobe pneumonia. Assessment & Plan - Time Time Spent with patient: 25-34 minutes - Plan Summary Plan Summary: gallstone pancreatitis still iwth elevated lipase, treding down no bm in a wk min abd pain, bloating héctor reg diet wbc trending down 12.9 today plan possibly dc home later today dulcolax supp.
[2019-02-02] MEDS: RINGERS SOLUTION,LACTATED 1,000 ML IV PRN ×2 (11:15→23:13)
[2019-02-03] MEDS: OXYCODONE-ACETAMINOPHEN 5-325 MG TABLET PO PRN ×3 (01:45→10:09)
[2019-02-03] MEDS: PIPERACILLIN SODIUM/TAZOBACTAM 3.375 GM in NORMAL SALINE 100 ML IV SCH ×2 (05:44→11:53)
--- NOTE | 2019-02-03 10:01 | PDOC DISCHARGE SUMMARY ---
General - Admit/Disc Date/PCP Admission Date/Primary Care Provider: 01/22/19 18:03 TAYLER SHARP MD Discharge Date: 02/03/19 - Discharge Diagnosis Final Diagnosis: gallstone pancreatitis - Assessment Summary: Patient was admitted to the hospital via the emergency room on 22 January for gallstone pancreatitis with elevated bilirubin and lipase. She was taken to the operating room on 24 January for ERCP and a laparoscopic cholecystectomy. She was noted to have acute cholecystitis as well as gallstone pancreatitis during the procedure drain was left in place after her cholecystectomy. She was in the hospital for approximately a week subsequent to the lap ailyn and the ERCP secondary to slowly improving pancreatitis. During her course she recovered well her parotitis slowly resolved she was started on a clear liquid diet which was slowly advanced to regular diet in the days postop. At this time she is afebrile with stable vital signs she is tolerating a regular diet she has minimal amounts of abdominal pain having normal bowel function and ready for discharge home. She has a drain in place which will be removed next week in the surgery clinic. Final diagnosis is gallstone pancreatitis status post laparoscopic cholecystectomy and ERCP. - Additional Information Resuscitation Status: Full Code Discharge Diet: As Tolerated Discharge Activity: Activity As Tolerated - Needs a follow-up in the [place] surgical clinic in 5 to 7 days. Referrals: [facility] [Provider Group] - 02/12/19 11:00 am Home Medications: c-Oaxlgnb-Aum Estr/Ethin Estra [Amethia 0.15-0.03-0.01 mg Tab] 1 tab PO DAILY 01/22/19 History of Present Illiness History of Present Illness: PEÑA SILVA is a 38 year old female Physical Exam Vital Signs: Temp Pulse Resp BP Pulse Ox 98.3 F 92 16 107/70 97 02/02/19 23:51 02/02/19 23:51 02/02/19 23:51 02/02/19 23:51 02/02/19 23:51 Intake & Output 02/02/19 02/03/19 02/04/19 06:59 06:59 06:59 Intake Total 2800 3040 Output Total 10 60 Balance 2790 2980 Weight 106.2 kg 105.8 kg Results Laboratory Results: WBC 12.9 10^3/uL (4.0-10.5) H 02/02/19 05:39 RBC 3.94 10^6/uL (3.72-5.28) 02/02/19 05:39 Hgb 11.6 g/dL (12.0-15.5) L 02/02/19 05:39 Hct 34.8 % (36.0-47.0) L 02/02/19 05:39 MCV 88 fl (80-97) 02/02/19 05:39 MCH 29.6 pg (27.0-33.4) 02/02/19 05:39 MCHC 33.5 g/dL (32.0-36.0) 02/02/19 05:39 RDW 13.4 % (11.5-14.0) 02/02/19 05:39 Plt Count 442 10^3/uL (150-450) 02/02/19 05:39 Lymph % (Auto) Not Reportable 02/02/19 05:39 Kimble % (Auto) Not Reportable 02/02/19 05:39 Eos % (Auto) Not Reportable 02/02/19 05:39 Baso % (Auto) Not Reportable 02/02/19 05:39 Absolute Neuts (auto) Not Reportable 02/02/19 05:39 Absolute Lymphs (auto) Not Reportable 02/02/19 05:39 Absolute Monos (auto) Not Reportable 02/02/19 05:39 Absolute Eos (auto) Not Reportable 02/02/19 05:39 Absolute Basos (auto) Not Reportable 02/02/19 05:39 Total Counted 100 02/02/19 05:39 Seg Neutrophils % Not Reportable 02/02/19 05:39 Seg Neuts % (Manual) 69 % (42-78) 02/02/19 05:39 Band Neutrophils % 4 % (3-5) 02/02/19 05:39 Lymphocytes % (Manual) 20 % (13-45) 02/02/19 05:39 Atypical Lymphs % 2 % (0) 01/30/19 06:32 Monocytes % (Manual) 7 % (3-13) 02/02/19 05:39 Eosinophils % (Manual) 0 % (0-6) 02/02/19 05:39 Basophils % (Manual) 0 % (0-2) 02/02/19 05:39 Metamyelocytes % 2 % (0-1) H 02/01/19 08:05 Abs Neuts (Manual) 9.4 10^3/uL (1.7-8.2) H 02/02/19 05:39 Abs Lymphs (Manual) 2.6 10^3/uL (0.5-4.7) 02/02/19 05:39 Abs Monocytes (Manual) 0.9 10^3/uL (0.1-1.4) 02/02/19 05:39 Absolute Eos (Manual) 0.0 10^3/uL (0.0-0.6) 02/02/19 05:39 Abs Basophils (Manual) 0.0 10^3/uL (0.0-0.2) 02/02/19 05:39 Nucleated RBCs 1 /100 WBC (0) 01/30/19 06:32 Toxic Granulation 1+ 01/30/19 06:32 Platelet Comment ADEQUATE 02/02/19 05:39 Polychromasia SLIGHT 02/01/19 08:05 Hypochromasia SLIGHT 02/02/19 05:39 RBC Morph Comment NORMO-CYTIC/CHROMIC 01/29/19 05:00 Sodium 138.2 mmol/L (137-145) 01/31/19 08:05 Potassium 4.4 mmol/L (3.6-5.0) 01/31/19 08:05 Chloride 101 mmol/L (98-107) 01/31/19 08:05 Carbon Dioxide 27 mmol/L (22-30) 01/31/19 08:05 Anion Gap 10 (5-19) 01/31/19 08:05 BUN 4 mg/dL (7-20) L 01/31/19 08:05 Creatinine 0.61 mg/dL (0.52-1.25) 01/31/19 08:05 Est GFR ( Amer) > 60 (>60) 01/31/19 08:05 Est GFR (MDRD) Non-Af > 60 (>60) 01/31/19 08:05 Glucose 85 mg/dL (75-110) 01/31/19 08:05 Calcium 8.7 mg/dL (8.4-10.2) 01/31/19 08:05 Total Bilirubin 1.0 mg/dL (0.2-1.3) 01/31/19 08:05 Direct Bilirubin 0.6 mg/dL (0.0-0.4) H 01/31/19 08:05 Neonat Total Bilirubin Not Reportable 01/31/19 08:05 Neonat Direct Bilirubin Not Reportable 01/31/19 08:05 Neonat Indirect Bili Not Reportable 01/31/19 08:05 AST 47 U/L (14-36) H 01/31/19 08:05 ALT 42 U/L (<35) 01/31/19 08:05 Alkaline Phosphatase 112 U/L (38-126) 01/31/19 08:05 Total Protein 6.2 g/dL (6.3-8.2) L 01/31/19 08:05 Albumin 2.9 g/dL (3.5-5.0) L 01/31/19 08:05 Lipase 672.9 U/L (23-300) H 02/02/19 05:39 Serum HCG, Qual NEGATIVE (NEGATIVE) 01/22/19 15:01 Urine Color YELLOW 01/22/19 15:01 Urine Appearance CLEAR 01/22/19 15:01 Urine pH 5.0 (5.0-9.0) 01/22/19 15:01 Ur Specific Bland 1.010 01/22/19 15:01 Urine Protein NEGATIVE mg/dL (NEGATIVE) 01/22/19 15:01 Urine Glucose (UA) NEGATIVE mg/dL (NEGATIVE) 01/22/19 15:01 Urine Ketones 20 mg/dL (NEGATIVE) H 01/22/19 15:01 Urine Blood MODERATE (NEGATIVE) H 01/22/19 15:01 Urine Nitrite NEGATIVE (NEGATIVE) 01/22/19 15:01 Urine Bilirubin SMALL (NEGATIVE) H 01/22/19 15:01 Urine Urobilinogen 4.0 mg/dL (<2.0) H 01/22/19 15:01 Ur Leukocyte Esterase NEGATIVE (NEGATIVE) 01/22/19 15:01 Urine WBC (Auto) 4 /HPF 01/22/19 15:01 Urine RBC (Auto) 3 /HPF 01/22/19 15:01 Urine Bacteria (Auto) 3+ /HPF 01/22/19 15:01 Squamous Epi Cells Auto 1 /HPF 01/22/19 15:01 Urine Mucus (Auto) RARE /LPF 01/22/19 15:01 Urine Ascorbic Acid NEGATIVE (NEGATIVE) 01/22/19 15:01 Impressions: Abdomen Ultrasound 01/22/19 15:38 IMPRESSION: Cholelithiasis. No acute inflammatory changes identified. Mild fatty liver. Catheter Placement 01/24/19 00:00 IMPRESSION: IMAGE(S) OBTAINED DURING PROCEDURE. Fluoroscopy 01/24/19 00:00 IMPRESSION: IMAGE(S) OBTAINED DURING PROCEDURE. Acute Abdomen Series 01/26/19 10:11 IMPRESSION: Bibasilar consolidation atelectasis or pneumonia. Findings discussed with Dr. Conde Post cholecystectomy with radiopaque right upper quadrant drain. Grossly nonobstructive bowel gas pattern Chest X-Ray 02/01/19 00:00 IMPRESSION: Cannot exclude a limited left lower lobe pneumonia.
[2019-02-03] MEDS: NYSTATIN 500000 UNIT/5 ML UDCUP PO SCH ×2 (10:09→13:15)
[2019-02-03] MEDS: LACTOBACILLUS ACIDOPHILUS 250 MG TAB PO SCH ×2 (10:09→13:15)
[2019-02-03] MEDS: CYCLOBENZAPRINE HCL 10 MG TABLET PO SCH (10:09)
[2019-02-03] MEDS: ENOXAPARIN SODIUM INJ 40 MG/0.4 ML DISP.SYRIN SUBCUT SCH (10:11)
[2019-02-03 12:49] VITALS: BP 129/65
== END 2019-02-03 13:30 | disposition home or self-care (01) | DRG 417 ==
LOC: ER 14:25 → EH 18:03 → 4S 18:46
PROVIDERS: ADMIT Surgery; ATTEND Surgery
PROC: 0FT44ZZ Resection of Gallbladder, Percutaneous Endoscopic Approach (ICD-10-PCS; principal; 2019-01-24 18:00)
PROC: 0FC98ZZ Extirpation of Matter from Common Bile Duct, Via Natural or Artificial Opening Endoscopic (ICD-10-PCS; 2019-01-24 18:00)
DX: K85.10 Biliary acute pancreatitis without necrosis or infection (principal); K65.3 Choleperitonitis; K80.42 Calculus of bile duct with acute cholecystitis without obstruction; E66.9 Obesity, unspecified; M54.5 Low back pain
CPT/HCPCS: 36415; 43262; 43277; 71045; 74022; 74328; 76705; 790; 80053; 80076; 81001; 83690; 84703; 85025; 87040; 88304; 90686; 94799; 96361; 96374; 96375; 96376; 99284; J0690; J1170; J1650; J1885; J2175; J2250; J2270; J2405; J2543; J2550; J2704; J3010; J3490; J7030; J7050; J7060; J7120; J7121

== ENCOUNTER → 2019-02-12 | Outpatient (CLI) | payer OTHER ==
[2019-02-12 13:48] LABS: ALBUMIN 4.3 g/dL (3.5-5.0); ALKALINE PHOSPHATASE 98 U/L (38-126); AMYLASE 40 U/L (30-110); ASPARTATE AMINO TRANSFERASE 88 U/L (14-36); BILIRUBIN,DIRECT 0.3 mg/dL (0.0-0.4); TOTAL PROTEIN 7.9 g/dL (6.3-8.2)
== END ==
LOC: OD 12:09
PROVIDERS: ATTEND Surgery
DX: K85.90 Acute pancreatitis without necrosis or infection, unspecified (principal); K91.86 Retained cholelithiasis following cholecystectomy
CPT/HCPCS: 36415; 80076; 82150; 83690